=== PATIENT | female | born 1985 | race African-American/Black ===

== ENCOUNTER 2020-09-21 16:58 | Outpatient (RCR) | payer OTHER, SELFPAY | END 2020-12-20 23:59 | disposition home or self-care (01) | LOC: ANHLAB 16:58 | PROVIDERS: PCP Family Medicine; Visit Provider Obstetrics & Gynecology | DX: O20.0 Threatened abortion (principal); Z3A.00 Weeks of gestation of pregnancy not specified | CPT/HCPCS: 36415; 84702 ==

== ENCOUNTER 2020-09-22 16:37 | Outpatient (CLI) | payer OTHER, SELFPAY ==
--- NOTE | ~2020-09-22 | US_ITS ---
EXAMINATION: US OB <= 14 weeks fetus DATE: 09/22/2020 17:01 INDICATION: Amenorrhea. Vaginal spotting. TECHNIQUE: Real-time transabdominal and transvaginal obstetric ultrasound. FINDINGS: No prior studies for comparison. The uterus measures 9.2 x 5.8 x 6.5 cm.. There is an intrauterine gestational sac, with pole id entified. The crown rump length measures 0.29 cm, which correlates with a estimated gestational age of 5 weeks 6 days. heart tones are identified measuring 120 BPM. Ovaries are not visualized. No free fluid in the pelvis. IMPRESSION: 1. SL IUP with an EGA of 5 weeks, 6 days (EDC by current ultrasound of 05/19/2021). Reviewed, dictated and finalized at location A. SERVER IMPRESSION: 1. SL IUP with an EGA of 5 weeks, 6 days (EDC by current ultrasound of 05/19/20).
== END 2020-09-22 16:38 | disposition home or self-care (01) ==
PROVIDERS: PCP Family Medicine; Visit Provider Obstetrics & Gynecology
DX: N91.2 Amenorrhea, unspecified (principal); Z3A.01 Less than 8 weeks gestation of pregnancy
CPT/HCPCS: 76801

== ENCOUNTER 2020-09-23 11:15 | Outpatient (CLI) | payer OTHER, SELFPAY ==
[2020-09-26 08:21] LABS: Progesterone 12.8 ng/mL (***)
== END 2020-09-23 11:16 | disposition home or self-care (01) ==
LOC: ANHLAB 11:17
PROVIDERS: PCP Family Medicine; Visit Provider Obstetrics & Gynecology
DX: O20.9 Hemorrhage in early pregnancy, unspecified (principal); Z3A.00 Weeks of gestation of pregnancy not specified
CPT/HCPCS: 36415; 84144; 84702

== ENCOUNTER 2020-10-09 14:55 | Emergency (ER) | payer OTHER, SELFPAY ==
[2020-10-09 15:04] VITALS: BP 120/70; PULSE 88; RESP 18; TEMP 36.6; O2SAT 99
[2020-10-09 15:29] LABS: Basophils Percent Auto 0.5 % (0.2-1.2); Eosinophils Absolute Auto 0.1 K/mm3 (0-0.3); Eosinophils Percent Auto 0.9 % (0-4.4); Hematocrit 34.9 % (37.0-47.0); Immature Granulocyte Absolute 0.04 K/mm3 (0.00-0.031); Immature Granulocyte Percent A 0.7 % (0-0.5); Lymphocytes Absolute Auto 1.14 K/mm3 (0.9-3.2); Lymphocytes Percent Auto 20.2 % (18.3-44.2); Mean Corpuscular HGB Conc 34.4 g/dl (32-36); Mean Corpuscular Hemoglobin 30.6 pg (26-34); Mean Platelet Volume 9.8 fl (7.4-10.4); Monocytes Absolute Auto 0.6 K/mm3 (0.1-0.6); Monocytes Percent Auto 11.2 % (2.6-8.5); Neutrophils Absolute Auto 3.8 K/mm3 (1.3-6.7); Neutrophils Percent Auto 66.5 % (45.5-73.1); Platelet Count Result 232 k/mm3 (150-375); Red Blood Count 3.92 M/mm3 (4.2-5.4); Red Cell Distribution Width 12.6 % (11.5-14.5); White Blood Count 5.7 K/mm3 (4.5-10.0)
[2020-10-09 15:48] VITALS: BP 123/71; PULSE 80
[2020-10-09 15:52] VITALS: BP 124/70; PULSE 91
[2020-10-09 15:55] VITALS: BP 137/89; PULSE 86
--- NOTE | 2020-10-09 16:10 | ED.GENADULT ---
HPI - General Adult General Chief complaint: Vaginal Bleeding Stated complaint: MISCARRIAGE? Time Seen by Provider: 10/09/20 15:14 Source: patient Mode of arrival: ambulatory Limitations: no limitations History of Present Illness HPI narrative: Patient presents for evaluation after passing a clot vaginally while urinating earlier today. She states she is currently , approximately 8 weeks gestation. She has a history of irregular menstruation with LMP 08/15/2020. She has established care with [facility] and had an ultrasound during this on 09/22/2020 that showed intrauterine with gestational sac and pole identified. Gestation was estimated at 5 weeks 6 days and heart tones were 120 bpm. She states that this ultrasound was performed after she experienced some intermittent vaginal bleeding. States that yesterday and the day prior she had some blood on the tissue when wiping after urination. She reports some cramping last night, now improved. No fever, chills, vomiting. She has experienced some nausea. She is . Surgical hx positive for D+C. She is Rh positive. Related Data Allergies Allergy/AdvReac Type Severity Reaction Status Date / Time codeine Allergy Mild ITCHING Verified 10/09/20 17:05 aspirin Allergy Unknown Skin Verified 10/09/20 17:05 Reaction Review of Systems Review of Systems: Narrative: CONSTITUTIONAL: Denies fever, chills, or sweats. EYES: Denies visual changes, redness, or discharge. ENT: Denies rhinorrhea, congestion, sore throat, or otalgia. CARDIOVASCULAR: Denies chest pain, palpitations, or edema. RESPIRATORY: Denies cough or dyspnea. GASTROINTESTINAL: Reports nausea. Denies abdominal pain, vomiting, or diarrhea. GENITOURINARY: Reports passing a blood clot vaginally with episode of urination earlier today. Denies dysuria SKIN: Denies rash or itching. MUSCULOSKELETAL: Denies back pain, joint pain, or myalgia. NEUROLOGIC: Denies headache, numbness, dizziness, or weakness. PSYCHIATRIC: Denies anxiety or depression. [facility] Past Medical History Medical History (Updated 10/09/20 @ 17:44 by Norberto Renee, CARLOS, ) Anemia Anxiety Surgical History Surgical History (Updated 10/09/20 @ 16:14 by Norberto Renee, CARLOS, ) H/O dilation and curettage History of tonsillectomy Family History Family History Grandparent Hypertension Cerebrovascular accident Diabetes mellitus Father Cerebrovascular accident Social History Social History Smoking status: Never smoker Second hand tobacco smoke exposure: No Alcohol intake: current Substance use: never Living arrangements: with family Gender identity (if verbalized by the patient): Female Sexual Orientation (if Verbalized by the Patient): Straight or Heterosexual Spiritual care concerns: No Exam Narrative: Exam Narrative: GENERAL: Well-appearing, well-nourished, and in no acute distress. HEAD: Normocephalic, atraumatic. EYES: PERRLA and EOMI. ENT: Nares clear, no rhinorrhea or epistaxis. Mucous membranes moist. Oropharynx without tonsillar hypertrophy exudate or other lesions. Bilateral TMs pearly nolen nonbulging NECK: Supple. No adenopathy or masses. No carotid bruits or JVD CHEST: Clear to auscultation. No respiratory distress. No wheezes rales or rhonchi HEART: Regular rate and rhythm. No murmur heard. Normal peripheral pulses. ABDOMEN: Soft, nontender, nondistended, normal active bowel sounds. EXTREMITIES: Normal range of motion. No edema. : No external genital lesions. No adnexal tenderness. No cervical motion tenderness. Small amount of mucus consistent sanguinous drainage in vaginal vault. Cervical os appears closed. SKIN: Warm, dry, no rash. NEURO: No focal deficits. Alert and oriented x3. PSYCH: Normal mood and affect. Course Course Emergency Course:
[2020-10-09] MEDS: LACTATED RINGERS 1,000 ML 999 ML IV CONT (16:35)
[2020-10-09 16:39] LABS: Alanine Aminotransferase 14 U/L (4-35); Albumin Level 3.8 g/dL (3.5-5.1); Alkaline Phosphatase 37 U/L (38-126); Anion Gap 9 mmol/L (8-16); Aspartate Amino Transferase 21 U/L (14-36); Bilirubin,Total 0.4 mg/dL (0.2-1.3); Blood Urea Nitrogen 12 mg/dL (7-17); Calcium 9.1 mg/dL (8.4-10.2); Carbon Dioxide 22 mmol/L (22-30); Chloride 105 mmol/L (98-107); Estimated CRCL calculation 105 ml/min; Estimated Glomerular Filt Rate > 60; Glucose 87 mg/dL (65-105); Lipase 140 U/L (23-300); Potassium 3.6 mmol/L (3.4-5.0); Sodium 136 mmol/L (137-145)
[2020-10-09 16:54] VITALS: BP 114/78; PULSE 79; RESP 15; O2SAT 100
[2020-10-09 17:06] LABS: Add Urine Microscopic? YES; Appearance Urine Cloudy (Clear); Bacteria Urine Trace /hpf; Bilirubin Urine Negative (Negative); Blood Urine 2+ (Negative); Color Urine Yellow (Yellow); Glucose Urine UA Negative (Negative); Ketones Urine Negative (Negative); Leukocyte Esterase Ur Negative LEU/UL (Negative); Mucus Urine Rare /lpf; Nitrate Urine Negative (Negative); Protein Urine Negative (Negative); Specific Grav Ur 1.023 (1.001-1.035); Squamous Epithelial Cell Urine Few /hpf (Few); Urobilinogen Urine Negative mg/dL (<2.0); WBC Urine 0-3 /hpf
[2020-10-09 17:54] VITALS: BP 128/76; PULSE 79; RESP 15; O2SAT 100
== END 2020-10-09 17:55 | disposition home or self-care (01) ==
PROVIDERS: Emergency Provider Nurse Practitioner; PCP Family Medicine
DX: O20.0 Threatened abortion (principal); Z3A.01 Less than 8 weeks gestation of pregnancy
CPT/HCPCS: 36415; 80053; 81001; 83690; 84702; 85025; 87491; 87591; 87808; 96360; 99284; J7120

== ENCOUNTER 2020-10-12 10:23 | Outpatient (CLI) | payer OTHER, SELFPAY ==
--- NOTE | ~2020-10-12 | US_ITS ---
EXAMINATION: US OB <= 14 weeks fetus DATE: 10/12/2020 10:54 INDICATION: Vaginal spotting TECHNIQUE: Real-time transabdominal obstetric ultrasound. FINDINGS: Comparison to 09/22/2020 The uterus measures 9.2 x 9.9 x 9.9 cm. There is an intrauterine gestational sac, with pole cabrera ntified. The crown rump length measures 2.33 cm. heart tones are identified measuring 155 BPM. . Ovaries are not visualized. No evidence for subchorionic hemorrhage. IMPRESSION: 1. SL IUP with an EGA of 9 weeks, 0 days (EDC by current ultrasound of 05/17/2021). Reviewed, dictated and finalized at location B. IMPRESSION: 1. SL IUP with an EGA of 9 weeks, 0 days (EDC by current ultrasound of 05/17/20 21).
== END 2020-10-12 10:24 | disposition home or self-care (01) ==
PROVIDERS: PCP Family Medicine; Visit Provider Student in an Organized Health Care Education/Training Program
DX: O26.851 Spotting complicating pregnancy, first trimester (principal); Z3A.09 9 weeks gestation of pregnancy
CPT/HCPCS: 76801

== ENCOUNTER 2021-01-10 08:31 | Outpatient (CLI) | payer OTHER, SELFPAY ==
[2021-01-10 09:38] LABS: Glucose Fasting Gestational 100 mg/dL (>/=95)
[2021-01-10 09:42] LABS: Free T4 Free Thyroxine 0.71 ng/mL (0.78-2.19)
[2021-01-10 11:07] LABS: Glucose 1 Hour Gest 174 mg/dL (>/=180)
[2021-01-10 12:14] LABS: Glucose 2 Hour Gest 179 mg/dL (>/= 155)
[2021-01-10 13:14] LABS: Glucose 3 Hour Gest 123 mg/dL (>/=140)
== END 2021-01-10 08:32 | disposition home or self-care (01) ==
PROVIDERS: PCP Family Medicine; Visit Provider Obstetrics & Gynecology
DX: O99.810 Abnormal glucose complicating pregnancy (principal); Z3A.14 14 weeks gestation of pregnancy
CPT/HCPCS: 36415; 82951; 82952; 84439; 86850

== ENCOUNTER 2021-03-28 15:35 | Observation (INO) | payer OTHER, SELFPAY ==
[2021-03-28 16:00] VITALS: BMI 36.7
[2021-03-28 16:04] VITALS: TEMP 36.2
[2021-03-28 16:08] VITALS: BP 102/63; PULSE 98
[2021-03-28 16:15] VITALS: BP 107/69; PULSE 95
[2021-03-28 16:27] LABS: Add Urine Microscopic? NO; Appearance Urine Clear (Clear); Bilirubin Urine Negative (Negative); Blood Urine Negative (Negative); Color Urine Straw (Yellow); Glucose Urine UA Negative (Negative); Ketones Urine Negative (Negative); Leukocyte Esterase Ur Negative LEU/UL (NEGATIVE); Nitrate Urine Negative (Negative); Protein Urine Negative (Negative); Urobilinogen Urine Negative mg/dL (<2.0)
[2021-03-28 16:30] VITALS: BP 105/62; PULSE 102
[2021-03-28 16:45] VITALS: BP 92/60; PULSE 98
--- NOTE | 2021-04-14 08:20 | PM.OBTRLD ---
OB - Triage/Final Diagnosis Visit Information Comments/Additional reasons for admission: I have assessed the risk for this patient, Micki Knight, and determined that she would benefit from observation care. Evaluation Laboratory results: Laboratory Tests 03/28/21 16:06 Urine Color Straw Urine Appearance Clear Urine pH 6.0 Ur Specific [place] 1.010 Urine Protein Negative Urine Glucose (UA) Negative Urine Ketones Negative Ur Blood (Man) Negative Urine Nitrate Negative Urine Bilirubin Negative Urine Urobilinogen Negative Ur Leukocyte Esterase Negative Final Diagnosis (1) with abdominal cramping of lower quadrant, antepartum: Code(s): O26.899 - Other specified related conditions, unspecified trimester; R10.30 - Lower abdominal pain, unspecified Status: Acute
--- NOTE | 2021-04-25 11:14 | P.PNOB_ITS ---
OB - Triage/Final Diagnosis Visit Information Comments/Additional reasons for admission: I have assessed the risk for this patient, Micki Knight, and determined that she would benefit from observation care. Evaluation Laboratory results: Laboratory Tests 03/28/21 16:06 Urine Color Straw Urine Appearance Clear Urine pH 6.0 Ur Specific [place] 1.010 Urine Protein Negative Urine Glucose (UA) Negative Urine Ketones Negative Ur Blood (Man) Negative Urine Nitrate Negative Urine Bilirubin Negative Urine Urobilinogen Negative Ur Leukocyte Esterase Negative Final Diagnosis (1) Threatened labor, antepartum: Code(s): O47.00 - False labor before 37 completed weeks of gestation, unspecified trimester Status: Acute
== END 2021-03-28 17:15 | disposition home or self-care (01) ==
PROVIDERS: Admitting Provider Obstetrics & Gynecology; PCP Family Medicine; Visit Provider Obstetrics & Gynecology
DX: O26.899 Other specified pregnancy related conditions, unspecified trimester (principal); R10.30 Lower abdominal pain, unspecified; Z3A.00 Weeks of gestation of pregnancy not specified
CPT/HCPCS: 81003; 87077; 87086; 87088; G0378; G0379

== ENCOUNTER 2021-03-31 18:55 | Observation (INO) | payer OTHER, SELFPAY ==
--- NOTE | 2021-03-31 18:55 | OBADM ---
This patient, Micki Knight, admitted to the OB room [facility] for observation. Patient/family oriented to hospital policies and general routines including ID bracelet, bed and alarms, visiting hours, pain management, procedures, bathroom and other care routines, personal items, smoking policy, room service/diet, and visiting hours. Patient/Family are encouraged to report perceived risks to care and to ask questions if they do not understand what they are told or what they should do.
[2021-03-31 19:00] VITALS: RESP 16; TEMP 36.8
[2021-03-31 19:11] VITALS: BP 98/75; PULSE 111
[2021-03-31] MEDS: TERBUTALINE SULFATE 1 MG/ML VIAL 0.25 MG SUB-Q (20:31)
[2021-03-31 20:37] VITALS: BP 125/59; PULSE 114
[2021-03-31 21:00] VITALS: BMI 31.6
[2021-03-31 21:04] VITALS: RESP 18
[2021-03-31 21:30] VITALS: RESP 18; TEMP 36.9
[2021-03-31 21:52] LABS: Fetal Fibronectin Positive
[2021-03-31] MEDS: BETAMETHASONE SOD PHOS/ACETATE 30 MG/5 ML VIAL 12 MG IM (22:15)
--- NOTE | 2021-04-22 11:19 | PM.OBTRLD ---
OB - Triage/Final Diagnosis Visit Information Comments/Additional reasons for admission: I have assessed the risk for this patient, Micki Knight, and determined that she would benefit from observation care. Evaluation Laboratory results: Laboratory Tests 03/31/21 20:12 Fibronectin Positive Final Diagnosis (1) contractions: Code(s): O47.00 - False labor before 37 completed weeks of gestation, unspecified trimester Status: Acute
== END 2021-03-31 22:26 | disposition home or self-care (01) ==
PROVIDERS: Admitting Provider Student in an Organized Health Care Education/Training Program; PCP Family Medicine; Visit Provider Student in an Organized Health Care Education/Training Program
DX: O60.03 Preterm labor without delivery, third trimester (principal); Z3A.33 33 weeks gestation of pregnancy
CPT/HCPCS: 82731; 96372; G0378; G0379; J0702; J3105

== ENCOUNTER 2021-04-01 22:20 | Outpatient (CLI) | payer OTHER, SELFPAY ==
[2021-04-01] MEDS: BETAMETHASONE SOD PHOS/ACETATE 30 MG/5 ML VIAL 12 MG IM (22:53)
== END 2021-04-01 23:00 | disposition home or self-care (01) ==
LOC: ANHOBOP 22:25 → ANHLDR 22:29
PROVIDERS: PCP Family Medicine; Visit Provider Obstetrics & Gynecology
DX: Z34.90 Encounter for supervision of normal pregnancy, unspecified, unspecified trimester (principal)
CPT/HCPCS: 96372; 99199; J0702

== ENCOUNTER 2021-05-01 12:55 | Inpatient (IN) | payer OTHER, SELFPAY ==
[2021-05-01] VITALS (18 sets, daily range): BP systolic 103–131; BP diastolic 67–96; PULSE 85–106; TEMP 36.9–37; BMI 36.7
--- OUTSIDE RECORDS SUMMARY | 2021-05-01 13:40 | XMS_ITS ---
:1985 Author Care Team Providers Name Role Phone Carol Pathak Primary Care Provider Unavailable Allergies Code Code System Name Reaction Severity Status Onset 1191 RxNorm Aspirin ? ? Active ? Medications Name Status Start Date Stop Date ? ? Bactrim DS 800 mg-160 mg tablet Completed 11/08/2011 11/14/2011 take 1 tablet by oral route every 12 hours for 7 days [place] 8 % vaginal gel Active ? Not avai lable escitalopram 10 mg tablet Completed ? 2019 Feosol 325 mg (65 mg iron) tablet Active ? Not available Take 1 tablet every day by oral route. Feosol Bifera 28 mg tablet Completed 12/28/201610/12 1 po q day by mouth Flagyl 500 mg tablet Completed 09/16/2015 04/06/2016 take 1 tablet by oral route 2 times every day Macrobid 100 mg capsule Completed 04/06/2016 09/20/19 17 take 1 capsule by oral route every 12 hours with food, as dire cted Metrogel Vaginal 0.75 % Completed 09/25/2016 12/29/19 17 insert 1 applicatorful by vaginal route every day at bedtime f or 5 nights Minastrin 24 Fe 1 mg-20 mcg (24)/75 mg (4) chewable tablet Compl eted 06/29/2016 09/19/2016 chew 1 tablet by oral route every day Mirena 20 mcg/24 hours (7 yrs) 52 mg intrauterine device Complet ed ? 10/12/2020 Take by intrauterine route. Monistat 7 2 % vaginal cream Completed 05/23/2012 insert 1 applicatorful by vaginal route every day at bedtime nystatin 100,000 unit/gram topical cream Active ? Not available APPLY TOPICALLY TO THE AFFECTED AREA TW ICE DAILY NEEDED FOR YEAST RASH OR SYMPTOMS
[2021-05-01 14:08] LABS: Glucose Point of Care 83 mg/dl (65-105)
[2021-05-01 14:13] LABS: Basophils Percent Auto 0.3 % (0.2-1.2); Eosinophils Absolute Auto 0.1 K/mm3 (0-0.3); Eosinophils Percent Auto 0.9 % (0-4.4); Hematocrit 33.9 % (37.0-47.0); Hemoglobin 11.5 g/dL (12.0-15.0); Immature Granulocyte Absolute 0.29 K/mm3 (0.00-0.031); Immature Granulocyte Percent A 4.4 % (0-0.5); Lymphocytes Absolute Auto 1.15 K/mm3 (0.9-3.2); Lymphocytes Percent Auto 17.3 % (18.3-44.2); Mean Corpuscular HGB Conc 33.9 g/dl (32-36); Mean Corpuscular Hemoglobin 31.1 pg (26-34); Mean Corpuscular Volume 91.6 fl (80-100); Mean Platelet Volume 10.4 fl (7.4-10.4); Monocytes Absolute Auto 0.8 K/mm3 (0.1-0.6); Monocytes Percent Auto 12.5 % (2.6-8.5); Neutrophils Absolute Auto 4.3 K/mm3 (1.3-6.7); Neutrophils Percent Auto 64.6 % (45.5-73.1); Nucleated Red Blood Cells Perc 0.3 % (0.0-0.2); Platelet Count Result 165 k/mm3 (150-375); Red Cell Distribution Width 14.3 % (11.5-14.5); White Blood Count 6.6 K/mm3 (4.5-10.0)
[2021-05-01] MEDS: AMPICILLIN 2 GM/NS 100 ML 2 GM/100 ML BAG IVPB (14:13)
[2021-05-01] MEDS: LACTATED RINGERS 1,000 ML 125 ML IV CONT (14:13)
--- NOTE | 2021-05-01 14:30 | LDADM ---
This patient, Micki Knight, was admitted to Labor/Delivery/Recovery 106 on 05/01/21 at 12:55. Plans for labor, pain management and were discussed with patient. Patient/family oriented to hospital policies and general routines including ID bracelet, bed and alarms, visiting hours, pain management, procedures, bathroom and other care routines, personal items, smoking policy, room service/diet and guest tray routines, infant security routines, and visiting hours. Patient/Family are encouraged to report perceived risks to care and to ask questions if they do not understand what they are told or what they should do. See OBIX for further documentation.
[2021-05-01 15:03] LABS: HIV 1/2 Ab P24 Ag Result Negative (Negative)
[2021-05-01] MEDS: OXYTOCIN 30 UNITS/NS 500 ML 30 UNITS/500 ML BAG IV CONT (16:41)
--- NOTE | 2021-05-01 17:03 | WPDANESEPP ---
Anes - Eval Pre Procedure Procedure: labor epidural Date/Time: 05/01/21 17:03 Surgeon: uma Pre Op Diagnosis: Leaking Patient Data Age: 35 Gender: F Height: 1.63 m Weight: 97 kg Last Vital Signs Temp 37.0 C 05/01/21 13:30 Pulse 93 05/01/21 17:00 BP 110/69 05/01/21 17:00 Allergies Allergy/AdvReac Type Severity Reaction Status Date / Time codeine Allergy Mild ITCHING Verified 04/26/21 11:04 aspirin Allergy Unknown Skin Verified 04/26/21 11:04 Reaction Home Medications Medication Instructions Recorded Confirmed Type vitamins no.119-iron 1 tablet PO DAILY 10/12/20 05/01/21 History fumarate 29 mg-folic acid 1 mg tablet calcium carbonate 600 mg calcium 600 mg PO DAILY 10/20/20 05/01/21 History (1,500 mg) tablet omega-3 fatty acids 1,000 mg 1,000 mg PO DAILY 10/20/20 05/01/21 History capsule insulin NPH isoph U-100 human 100 10 unit SUBCUT QPM ml 04/26/21 05/01/21 History unit/mL (3 mL) subcutaneous pen Laboratory Tests 05/01/21 05/01/21 05/01/21 14:04 14:05 14:05 WBC 6.6 K/mm3 K/mm3 (4.5-10.0) RBC 3.70 M/mm3 L M/mm3 (4.2-5.4) Hgb 11.5 g/dL L g/dL (12.0-15.0) Hct 33.9 % L % (37.0-47.0) MCV 91.6 fl fl (80-100) MCH 31.1 pg pg (26-34) MCHC 33.9 g/dl g/dl (32-36) RDW 14.3 % % (11.5-14.5) Plt Count 165 k/mm3 k/mm3 (150-375) MPV 10.4 fl fl (7.4-10.4) Immature Gran % (Auto) 4.4 % H % (0-0.5) Neut % (Auto) 64.6 % % (45.5-73.1) Lymph % (Auto) 17.3 % L % (18.3-44.2) [place] % (Auto) 12.5 % H % (2.6-8.5) Eos % (Auto) 0.9 % % (0-4.4) Baso % (Auto) 0.3 % % (0.2-1.2) Lymph # (Auto) 1.15 K/mm3 K/mm3 (0.9-3.2) [place] # (Auto) 0.8 K/mm3 H K/mm3 (0.1-0.6) Eos # (Auto) 0.1 K/mm3 K/mm3 (0-0.3) Baso # (Auto) 0.0 K/mm3 K/mm3 (0.0-0.1) Abs Immat Gran (auto) 0.29 K/mm3 H K/mm3 (0.00-0.031) Absolute Neuts (auto) 4.3 K/mm3 K/mm3 (1.3-6.7) Absolute Nucleated RBC 0.0 K/mm3 K/mm3 (0.0-0.012) Nucleated RBC % 0.3 % H % (0.0-0.2) POC Capillary Glucose 83 mg/dl mg/dl (65-105) RPR Pending HIV 1&2 Ab/P24 Ag 4thGn Blood Type Antibody Screen 05/01/21 05/01/21 14:05 14:05 WBC RBC Hgb Hct MCV MCH MCHC RDW Plt Count MPV Immature Gran % (Auto) Neut % (Auto) Lymph % (Auto) [place] % (Auto) Eos % (Auto) Baso % (Auto) Lymph # (Auto) [place] # (Auto) Eos # (Auto) Baso # (Auto) Abs Immat Gran (auto) Absolute Neuts (auto) Absolute Nucleated RBC Nucleated RBC % POC Capillary Glucose RPR HIV 1&2 Ab/P24 Ag 4thGn Negative (Negative) Blood Type O Positive Antibody Screen Negative Patient hx anesthesia problems: none Family hx anesthesia problems: none Results Review: All pre-operative results and documents have been reviewed as part of the pre-operative evaluation. [facility] Past Medical History Medical History Anemia Anxiety History of vaginal delivery x 2 Missed x1 Surgical History Surgical History H/O dilation and curettage History of tonsillectomy Family History Family History Grandparent Hypertension Cerebrovascular accident Diabetes mellitus Father Cerebrovascular accident Social History Social History Smoking status: Never smoker Second hand t
[2021-05-01] MEDS: AMPICILLIN 1 GM/NS 50 ML 1 GM/50 ML BAG IVPB (18:14)
[2021-05-01 18:32] LABS: Glucose Point of Care 69 mg/dl (65-105)
--- NOTE | 2021-05-01 18:51 | PM.IMHP ---
H&P: HPI History of Present Illness Date/Time: 05/01/21 18:51 Patient is a 35 y/o at 37 2/7 by 5w 6d ultrasound on 09/22/20 which was discrepant from her LMP of 07/28/20. Patient presented today with leaking of fluid. She thought she had increase wetness on Fri and then on Sat at 1030pm she noticed more wetness, leaking. She presented today after having increase contractions. No fever. PNC significant for insulin requiring gestational diabetes, advance maternal age. She had an episode of contractions. She states that since her last visit on 04/26 her fingersticks have been normal. She has had reassuring testing. Last ultrasound was 72%. On L and D she had irregular contractions and confirmed ROM plus. Labs reviewed. GBS pos. Chief Complaint: Leaking of fluid Review of Systems Review of Systems: All systems reviewed & are unremarkable except as noted in HPI and below Constitutional: Constitutional: Reports no additional constitutional complaints and Denies headache(s) Eyes: Eyes: Denies spots in vision ENT: Reports system reviewed and no additional complaints, except as documented and Denies headache(s) Cardiovascular: Cardiovascular: Denies chest pain and Denies dyspnea Respiratory: Respiratory: Denies dyspnea Gastrointestinal: Gastrointestinal: Reports no additional gastrointestinal complaints Genitourinary: Genitourinary: Reports amenorrhea Musculoskeletal: Musculoskeletal: Reports no additional musculoskeletal complaints Integumentary/Breasts: Skin/Breast: Denies breast mass and Denies rash Neurologic: Denies headache(s) Psychiatric: Psychiatric: Reports no additional psychiatric complaints PMFSH Past Medical History Medical History Anemia Anxiety History of vaginal delivery x 2 Missed x1 Surgical History Surgical History H/O dilation and curettage History of tonsillectomy Family History Family History Grandparent Hypertension Cerebrovascular accident Diabetes mellitus Father Cerebrovascular accident Social History Social History Smoking status: Never smoker Second hand tobacco smoke exposure: No Alcohol intake: current Substance use: never Gender identity (if verbalized by the patient): Female Sexual Orientation (if Verbalized by the Patient): Straight or Heterosexual Spiritual care concerns: No Meds Home Medications and Allergies Home Medications Medication Instructions Recorded Confirmed Type vitamins no.119-iron 1 tablet PO DAILY 10/12/20 05/01/21 History fumarate 29 mg-folic acid 1 mg tablet calcium carbonate 600 mg calcium 600 mg PO DAILY 10/20/20 05/01/21 History (1,500 mg) tablet omega-3 fatty acids 1,000 mg 1,000 mg PO DAILY 10/20/20 05/01/21 History capsule insulin NPH isoph U-100 human 100 10 unit SUBCUT QPM ml 04/26/21 05/01/21 History unit/mL (3 mL) subcutaneous pen Allergies Allergy/AdvReac Type Severity Reaction Status Date / Time codeine Allergy Mild ITCHING Verified 04/26/21 11:04 aspirin Allergy Unknown Skin Verified 04/26/21 11:04 Reaction Vital Signs Vital Signs - 24 hr 05/01/21 13:14 05/01/21 13:30 05/01/21 15:30 Temperature 98.6 F 98.5 F Pulse Rate 106 H Blood Pressure 113/73 05/01/21 16:42 05/01/21 17:00 05/01/21 17:30 Temperature 98.6 F Pulse Rate 100 93 95 Blood Pressure 120/73 110/69 114/75 05/01/21 18:00 05/01/21 18:30 Temperature Pulse Rate 96 96 Blood Pressure 115/73 112/67 Exam Const: General: no acute distress Eyes: General: appearance normal, both eyes and all related structures Resp: Effort & Inspection: normal respiratory effort Cardio: Rate: regular rate GI: Other: Gravid no fundal tend
--- NOTE | 2021-05-01 19:03 | PM.OBPNLAB ---
Pain Control Date/time seen: 05/01/21 19:03 FHT 150 Cat 1, Ctx q 3-4 Large Forebag AROM clear at approximately 1835. Cervix /-2. Continue Pitocin augmentation and antibiotics.
[2021-05-01] MEDS: DEXTROSE 5%/LACTATED RINGERS 1,000 ML 100 ML IV CONT (19:25)
--- NOTE | 2021-05-01 22:16 | PM.OBPRVD ---
OB - Delivery Note Procedure Delivery date: 05/01/21 Procedure: Spontaneous vaginal delivery events: Gestational Diabetes, Premature Rupture of Membrane and Prolonged Rupture of Membrane Delivery augmentation: rupture of membranes and pitocin Delivery monitor: external FHT Route of delivery: Episiotomy description: None Laceration Description: None Specimen: Yes (Placenta and cord) Quantitative Blood Loss (ml): 300 Anesthesia type: None Disposition: floor Complications: None Baby Date of : 05/01/21 Time of : 21:54 Weeks of gestation at delivery: 37 gender: Male Weight (pounds): 7 Weight (ounces): 11 presentation: vertex position: Left Occiput Anterior Placenta delivery description: Expressed cord vessel description: 3 Vessels and Delayed Cord Clamping score one minute: 9 score five minutes: 9 Narrative: Patient admitted, labor augented with pitocin, forebag was assisted ruptured. She progressed to complete. Nose and mouth suctioned with bulb at perineum. Infant vigorously crying and placed on maternal abdomen. Patient tolerated procedure well.
[2021-05-01] MEDS: ACETAMINOPHEN 325 MG TABLET 650 MG (22:43)
[2021-05-01] MEDS: WITCH HAZEL 40 PADS 1 PAD (22:44)
[2021-05-01] MEDS: BENZOCAINE 20% AER SPR (*SP) 56 GM CAN 1 SPRAY (22:44)
[2021-05-01] MEDS: IBUPROFEN 600 MG TABLET (22:44)
[2021-05-02] VITALS (7 sets, daily range): BP systolic 103–116; BP diastolic 64–72; PULSE 80–99; RESP 16–18; TEMP 36.3–36.7; O2SAT 94–100
[2021-05-02] MEDS: IBUPROFEN 600 MG TABLET PO ×3 (04:15→19:23)
[2021-05-02] MEDS: ACETAMINOPHEN 325 MG TABLET 650 MG PO ×3 (04:16→19:22)
[2021-05-02 05:32] LABS: Glucose Point of Care 97 mg/dl (65-105)
[2021-05-02 05:40] LABS: Hematocrit 29.9 % (37.0-47.0)
[2021-05-02] MEDS: MULTIVIT/MIN/PREN/FOL AC/IRON TABLET 1 TAB PO (09:27)
[2021-05-02] MEDS: DOCUSATE SODIUM 100 MG CAPSULE PO (09:27)
[2021-05-02 10:27] LABS: Rapid Plasma Reagin Non-Reactive (NonReactive)
--- NOTE | 2021-05-02 11:00 | PC.NURSE ---
Mother called out for assist with feeding, reporting was circumcised this morning and is sleepy. is able to freely thrust tongue past gum ridge and flange both lips. Skin is intact on both nipples, no redness and bruising noted. Discussed establishing in the late infant may be more difficult due to their immaturity, infant may be less alert, have less stamina, and have greater difficulty with latch, suck, and swallow. ?s feeding may impact mother?s milk supply, pumping may need to be initiated /continued until milk supply is well established and is able to effective without supplementation. Mother states has not had any issued with feeding. Reviewed infant feeding cues, frequencies, duration of feedings, feeding elimination flow sheet, and signs of adequate intake. Demonstrated stimulation techniques to wake for feeding. Infant easily awoken with feeding cues noted Assisted with to breast. Reviewed positioning/alignment in cross cradle, holding breast in ?U? hold and guided asymmetrical latch on. Reviewed rational for each. Infant able to latch correctly within a few attempts. Infant nursed eagerly with steady draws and occasional swallowing noted, some pausing noted. Reviewed signs of a correct latch, effective nursing and suck swallow ratio. Suggested mother stimulate while feeding to increase stimulate, increase intake and to assist with maintaining deep latch. would slip to shallow latch causing tenderness. Demonstrated how to adjust latch more deeply while feeding if needed. Mother reports she can feel the difference in latch with no/less tenderness. Nipple care reviewed of lanolin after feedings, warm compresses as needed. Instructed mother to call out for RN assistance if she is unable to latch for feeding or she has discomfort with nursing. Instructed feeding should be initiated three hours from start of last feeding or if feeding cues are noted before. Mother voiced understanding of information shared.
[2021-05-02] MEDS: TETANUS,DIPHTHERIA,AC PERTUSSIS ADULT (0.5 ML) BOOSTRIX IM (19:09)
[2021-05-03] MEDS: IBUPROFEN 600 MG TABLET PO (04:47)
[2021-05-03] MEDS: ACETAMINOPHEN 325 MG TABLET 650 MG PO (04:48)
--- NOTE | 2021-05-03 05:45 | PM.OBPNVD ---
OB - PN: Subj Subjective Date/time seen: 05/02/21 0800 Patient comments: pain well controlled, tolerating diet and other (Decreasing lochia.) baby status: doing well and nursing well [place] feeding status: exclusively breast feeding OB - PN: Obj Data Labs CBC & Chem 7: 05/02/21 05:27 Labs: Laboratory Results - last 24 hr 05/01/21 14:05 RPR Non-reactive OB - PN A/P Plan day: 1 Plan: routine care Comments: Patient doing well. Continue routine care. Time Spent With Patient Time: Total time spent is greater than 50% in coordination of care (as documented) at patient's floor/unit and/or counseling patient: Review of Systems Review of Systems: All systems reviewed & are unremarkable except as noted in HPI and below Constitutional: Constitutional: Reports no additional constitutional complaints Cardiovascular: Cardiovascular: Denies dyspnea Respiratory: Respiratory: Denies dyspnea Gastrointestinal: Gastrointestinal: Reports no additional gastrointestinal complaints and Denies abdominal pain Genitourinary: Genitourinary: Reports no additional female genitourinary complaints Exam Const: General: no acute distress, alert and awake Resp: Effort & Inspection: normal respiratory effort GI: GI Palp: No Tenderness to palpation present (GI) Other: Fundus nontender, below umbilicus Psych: Appearance: grossly normal Affect: normal affect Other: Ext: nontender
--- NOTE | 2021-05-03 05:48 | PM.OBDSVD ---
DS: Admitting Diagnosis Discharge Date 05/03/21 Admitting Diagnosis Premature rupture of membranes. 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 She was started on IV antibiotics for GBS prophylaxis. She had pitocin augmentation. She had assisted rupture of membranes of forebag. She progressed to complete and had an uncomplicated vaginal delivery. Her blood sugars during labor were normal. she did well. Blood sugar fasting on day 1 was 97. She was ambulating well and tolerating regular diet and had light lochia on day 1. day 2 she was doing well. OB Procedures : NST and Ultrasound OB Procedures Intrapartum: Spontaneous Vag Delivery OB Procedures: : None Peripartum Data Infant Delivery Method: Natural Vaginal Laceration Description: None Episiotomy description: None complications: none Status at Discharge Functional status at discharge: independent ambulation Time Spent with Patient Time attestation: Total time spent providing and/or coordinating discharge services: Exam Const: General: cooperative Orientation/consciousness: oriented to person, oriented to place and oriented to time HENMT: General nose exam: Normal external nose present Eyes: General: appearance normal, both eyes and all related structures Resp: Effort & Inspection: normal respiratory effort GI: Inspection: normal to inspection Other: fundus firm nontender Skin: General skin exam: normal color Neuro: General: oriented to person, oriented to place and oriented to time Extrem: General: normal to inspection and no calf tenderness Psych: Appearance: grossly normal Mental Status: mental status grossly normal DS: Data Data Completed and Pending Pending studies at discharge: Pending at discharge 05/02/21 01:56 Surgical [PTH] Routine Labs on day of discharge: Labs from last 24 hours 05/01/21 14:05 RPR Non-reactive Discharge Plan Discharge Attending physician on discharge: Messi Anand Discharging Clinician: Messi Anand Anticipated Discharge Date/Time: 05/03/21 05:57 Patient Disposition: Home, Self-Care Activity: may shower and pelvic rest Diet: regular Discharge Instructions: Pelvic rest for 4-6 weeks. May take over the counter Ibuprofen or Tylenol for pain. Call if saturating more than a pad an hour, leg redness, pain and swelling, temperature>100.4. No strenuous activity. Take daily vitamin once a day. Education: Mom and Baby Guide and Preeclampsia Handout Given to: Mother Follow-Up: Call your delivering provider's office for an appointment to be seen in: 4 Weeks Mom and baby should come to the [facility] for the follow-up appointment. Appointment Date/Time: May 04, 2021 at 9:00 am What to expect at your follow-up visit: Physical Assessment Call [phone] if you are unable to keep your appointment time. BREAST CARE: * Wear a snug supportive bra. * For engorgement discomfort: Breast Feeding: * Apply warm moist washcloths * Express milk as needed to relieve engorgement * Wear loose clothing * For sore nipples: * Identify correct latch-on * Apply warm moist washcloths
--- NOTE | 2021-05-03 06:00 | PM.GYNPNOP ---
PARTS REPRESENTATIVE - A/P Assessment and plan (1) Delivery normal: Code(s): O80 - Encounter for full-term uncomplicated delivery Status: Acute Assessment and Plan: Day 2. S/p . She is doing well. Peds allowing baby to be discharged today. Patient desires discharge. Discharge instructions discussed. Time Spent With Patient Time: Total time spent is greater than 50% in coordination of care (as documented) at patient's floor/unit and/or counseling patient: Time with patient: less than 15 minutes PARTS REPRESENTATIVE- PN:Subj Post-Op Subjective Date/time seen: 05/03/21 08:30 She states she is doing well. Has adequate pain control. Ambulating without problems. Nursing well. Mild lochia. Review of Systems Review of Systems: All systems reviewed & are unremarkable except as noted in HPI and below Constitutional: Constitutional: Reports no additional constitutional complaints Cardiovascular: Cardiovascular: Denies dyspnea Respiratory: Respiratory: Denies dyspnea Gastrointestinal: Gastrointestinal: Reports no additional gastrointestinal complaints and Denies abdominal pain Genitourinary: Genitourinary: Reports no additional female genitourinary complaints Exam Const: General: comfortable and no acute distress Eyes: General: appearance normal, both eyes and all related structures Resp: Effort & Inspection: normal respiratory effort Psych: Affect: normal affect Other: Abd: fundus firm below umbilicus, nontender Ext: nontender PARTS REPRESENTATIVE - PN: Obj Data Vital Signs Vital Signs: Vital Signs - 24 hr 05/02/21 08:15 05/02/21 12:14 05/02/21 16:40 Temperature 97.6 F 97.7 F 98.1 F Pulse Rate 80 92 91 Respiratory Rate 16 16 18 Blood Pressure 104/66 113/72 103/64 Pulse Oximetry 100 100 05/02/21 19:10 Temperature 97.5 F L Pulse Rate 97 Respiratory Rate 18 Blood Pressure 113/65 Pulse Oximetry Intake/Output Intake/Output: Intake & Output 04/30/21 05/01/21 05/02/21 05/03/21 23:59 23:59 23:59 23:59 Output Total 25 Balance -25 Meds/Results Medications: Active Medications Generic Name Dose Route Start Last Admin Trade Name Freq PRN Reason Stop Dose Admin Acetaminophen 650 mg 05/02/21 03:47 05/03/21 04:48 Acetaminophen 325 Mg Tablet PO 650 mg Q6H PRN Administration Mild Pain (1-3) or Headache Benzocaine 1 spray 05/02/21 03:47 Benzocaine 20% Aer Spr (*Sp) 56 Gm Can TOPICAL PRN PRN Perineal Discomfort Dibucaine 1 applic 05/02/21 03:47 Dibucaine 1% Ointment 30 Gm Tube TOPICAL PRN PRN Hemorrhoids Docusate Sodium 100 mg 05/02/21 03:47 05/02/21 09:27 Docusate Sodium 100 Mg Capsule PO 100 mg BID PRN Administration Constipation Emollient Ointment 1 applic 05/02/21 03:47 Lanolin (Lansinoh) 7.5 Gm Cream TOPICAL PRN PRN Sore Nipples Ibuprofen 600 mg 05/02/21 03:47 05/03/21 04:47 Ibuprofen 600 Mg Tablet PO 600 mg Q6H PRN Administration Cramping Vit/Calcium/Iron/Folic Ac 1 tab 05/02/21 09:00 05/02/21 09:27 Multivit/Min/Pren/Fol Ac/Iron Tablet PO 1 tab DAILY MAXWELL Administration Simethicone 80 mg 05/02/21 03:47 Simethicone 80 Mg Tab.Chew PO Q2H PRN Gas Witch Kathie 1 pad 05/02/21 03:47 Witch Kathie 40 Pads TOPICAL PRN PRN Perineal Discomfort Zolpidem Tartrate 5 mg 05/02/21 03:47 Zolpidem Tartrate (*Crx) 5 Mg Tablet PO HS PRN Insomnia Labs CBC & Chem 7: 05/02/21 05:27 Labs: Laboratory Results - last 24 hr 05/01/21 14:05 RPR Non-reactive
[2021-05-03 08:45] VITALS: BP 106/69; PULSE 90; RESP 16; TEMP 36.6; O2SAT 100
[2021-05-03] MEDS: DOCUSATE SODIUM 100 MG CAPSULE PO (09:22)
[2021-05-03] MEDS: MULTIVIT/MIN/PREN/FOL AC/IRON TABLET 1 TAB PO (09:22)
--- NOTE | 2021-05-03 09:25 | PC.NURSE ---
Patient received instruction on viewing the discharge video Mother & Baby Care, The First Two Weeks online. Patient was given the opportunity and encouraged to ask questions. Patient verbalized understanding of information shared and has been given the mother/baby guide for home reference.
--- NOTE | 2021-05-03 09:45 | PC.NURSE ---
Consult with pt., observed mother is able to independently latch with appropriate positioning/alignment. Infant eagerly latches on first attempt with long rhythmical draws and frequent swallowing noted. She denies any nipple discomfort, is feeding as required and waking infant to feed if needed. Infant has had at least 8 effective feedings in the past 24 hours, and is currently meeting outcomes for weight, output, jaundice and feeding frequencies. Mother states she feels confident to continue effective at home. Reviewed transition to breast milk, signs of adequate intake, and engorgement/relief. Instructed to call ICP if intake/output less than required. Reviewed regular medications mother is taking. Information provided per [place]. Reviewed community resources on the [facility] website and in the Mom/Baby guide. Information on outpatient services provided. Mother has no further questions at this time. Instructed feeding should be initiated three hours from start of last feeding or if feeding cues are noted before until seen by ICP. Mother voiced understanding of information shared.
[2021-05-04 08:45] VITALS: BP 119/66; PULSE 88; RESP 20; TEMP 37.2; O2SAT 100
== END 2021-05-03 12:25 | disposition home or self-care (01) | DRG 807 ==
LOC: ANHLDR 13:38 → ANHOB2 05-02 02:39
PROVIDERS: Admitting Provider Obstetrics & Gynecology; PCP Family Medicine; Visit Provider Obstetrics & Gynecology
DX: O42.113 Preterm premature rupture of membranes, onset of labor more than 24 hours following rupture, third trimester (principal); Z37.0 Single live birth; Z3A.37 37 weeks gestation of pregnancy; O99.824 Streptococcus B carrier state complicating childbirth; O99.02 Anemia complicating childbirth; D64.9 Anemia, unspecified; O24.424 Gestational diabetes mellitus in childbirth, insulin controlled; O99.344 Other mental disorders complicating childbirth; F41.9 Anxiety disorder, unspecified
CPT/HCPCS: 36415; 82948; 85014; 85018; 85025; 86592; 86703; 86850; 86900; 86901; 88307; 90715; A9270; G0432; J0290; J2590; J7120; J7121

== ENCOUNTER 2021-05-08 20:16 | Inpatient (IN) | payer OTHER, SELFPAY ==
--- NOTE | ~2021-05-08 | CT_ITS ---
EXAMINATION: CTA chest PE protocol DATE: 05/08/2021 23:29 INDICATION: Shortness of breath. TECHNIQUE: Computed tomography angiography (CTA) of the chest was performed with 100 mL Omnipaque-350 intravenous contrast timed to evaluate the pulmonary arteries. Coronal maximum intensity projection 3D-reconstructions were created by the technologist. Automated exposure control and iterative reconst ruction technique were employed. The dose-length product was 648.60 mGy-cm. COMPARISON: CT abdomen and pelvis 02/05/2016 FINDINGS: There are small pleural effusions. There is mild dependent atelectasis bilaterally. A calci fied right lung nodule and calcified right hilar lymph nodes are consistent with old granulomatous di sease. The heart size is normal. No pericardial effusion. There is no pulmonary embolus. There is pro minent thymus in the anterior mediastinum. The bones are unremarkable. IMPRESSION: 1. No pulmonary embolus. 2. Small pleural effusions. Reviewed, dictated and finalized at location A.
--- NOTE | ~2021-05-08 | XR_ITS ---
EXAMINATION: XR chest 1V portable INDICATION: Shortness of breath TECHNIQUE: Portable AP chest at 2148 hours COMPARISON: 11/24/2014 FINDINGS: The lungs are free of acute opacities. There is no pneumothorax. Small pleural effusions ar e present. The cardiomediastinal silhouette is normal. IMPRESSION: 1. Small pleural effusions. Reviewed, dictated and finalized at location A. IMPRESSION: 1. Small pleural effusions.
[2021-05-08 20:22] VITALS: BP 145/95; PULSE 75; RESP 15; TEMP 37.1; O2SAT 100
[2021-05-08 20:40] VITALS: BP 138/91; PULSE 79; RESP 20; O2SAT 99
[2021-05-08 21:00] LABS: Basophils Percent Auto 0.4 % (0.2-1.2); Eosinophils Absolute Auto 0.1 K/mm3 (0-0.3); Eosinophils Percent Auto 1.8 % (0-4.4); Hematocrit 33.4 % (37.0-47.0); Hemoglobin 11.1 g/dL (12.0-15.0); Immature Granulocyte Absolute 0.08 K/mm3 (0.00-0.031); Immature Granulocyte Percent A 1.6 % (0-0.5); Lymphocytes Absolute Auto 1.56 K/mm3 (0.9-3.2); Lymphocytes Percent Auto 30.5 % (18.3-44.2); Mean Corpuscular HGB Conc 33.2 g/dl (32-36); Mean Corpuscular Hemoglobin 30.8 pg (26-34); Mean Corpuscular Volume 92.8 fl (80-100); Mean Platelet Volume 9.8 fl (7.4-10.4); Monocytes Absolute Auto 0.6 K/mm3 (0.1-0.6); Monocytes Percent Auto 11.3 % (2.6-8.5); Neutrophils Absolute Auto 2.8 K/mm3 (1.3-6.7); Neutrophils Percent Auto 54.4 % (45.5-73.1); Platelet Count Result 221 k/mm3 (150-375); Red Cell Distribution Width 14.3 % (11.5-14.5); White Blood Count 5.1 K/mm3 (4.5-10.0)
--- NOTE | 2021-05-08 21:38 | ED.GENADULT ---
HPI - General Adult General Chief complaint: Vaginal Bleeding Stated complaint: vaginal bleeding s/p delivery 1 week ago Time Seen by Provider: 05/08/21 20:44 Source: patient Mode of arrival: ambulatory Limitations: no limitations History of Present Illness HPI narrative: Patient G4,A1, P3 presents with chief complaint of passing 2 large blood clots and heavy vaginal bleeding over 10 to 15 minutes prior to arrival. Patient reports that she induced [address] Anand due to gestational diabetes. She reports that her placenta was difficult to deliver, but there was no hemorrhaging or other complications. She reports her lochia previous to this episode was light pink and not heavy. She reports she has also felt SOB with exertion since sunday and a pressure like sensation. Patient denies chest pain, cough, fever, chills. Related Data Allergies Allergy/AdvReac Type Severity Reaction Status Date / Time codeine Allergy Mild ITCHING Verified 04/26/21 11:04 aspirin Allergy Unknown Skin Verified 04/26/21 11:04 Reaction Review of Systems Review of Systems: CONSTITUTIONAL: Denies fever, chills, or sweats. EYES: Denies visual changes, redness, or discharge. ENT: Denies rhinorrhea, congestion, sore throat, or otalgia. CARDIOVASCULAR: Denies chest pain, palpitations, or edema. RESPIRATORY: Reports SOB Denies cough GASTROINTESTINAL: Denies abdominal pain, nausea, vomiting, or diarrhea. GENITOURINARY: Reports vaginal bleeding with clots Denies dysuria or hematuria. SKIN: Denies rash or itching. MUSCULOSKELETAL: Denies back pain, joint pain, or myalgia. NEUROLOGIC: Denies headache, numbness, dizziness, or weakness. PSYCHIATRIC: Denies anxiety or depression. [facility] Past Medical History Medical History Anemia Anxiety History of vaginal delivery x 2 Missed x1 Surgical History Surgical History H/O dilation and curettage History of tonsillectomy Family History Family History Grandparent Hypertension Cerebrovascular accident Diabetes mellitus Father Cerebrovascular accident Social History Social History Smoking status: Never smoker Second hand tobacco smoke exposure: No Alcohol intake: current Substance use: never Gender identity (if verbalized by the patient): Female Sexual Orientation (if Verbalized by the Patient): Straight or Heterosexual Spiritual care concerns: No Exam Narrative: GENERAL: Well-appearing, well-nourished, and in no acute distress. HEAD: Normocephalic, atraumatic. EYES: PERRLA and EOMI. CHEST: Clear to auscultation. No respiratory distress. No wheezes rales or rhonchi. Not tachypnic. Speech clear without difficulty. HEART: Regular rate and rhythm. No murmur heard. Normal peripheral pulses. ABDOMEN: Soft, still distended slightly from , nontender, normal active bowel sounds. PELVIC: Profuse bright red bleeding with many clots from quarter sized to 2 small fist sized clots. Suction used and vaginal vault still filling with blood and clots. Can not visualize the cervix. EXTREMITIES: Normal range of motion. No edema. SKIN: Warm, dry, no rash. NEURO: No focal deficits. Alert and oriented x3. PSYCH: Normal mood and affect. Course Vital Signs Vital signs: Vital Signs Temperature 98.7 F 05/08/21 20:22 Pulse Rate 75 05/08/21 20:22 Respiratory Rate 15 05/08/21 20:22 Blood Pressure 145/95 H 05/08/21 20:22 Pulse Oximetry 100 05/08/21 20:22 Temperature 97.9 F 05/09/21 07:00 Pulse Rate 70 05/09/21 07:00 Respiratory Rate 16 05/09/21 07:00 Blood Pressure 112/60 05/09/21 07:00 Pulse Oximetry 98 05/09/21 07:00 Medical Decision Making MDM Narrative Medical decision making narrative: Consult Dr Moreland regarding patient presentati
[2021-05-08 21:52] VITALS: BP 113/83; PULSE 69; RESP 18; O2SAT 99
[2021-05-08 22:20] LABS: D Dimer 3.83 ug/mL (<0.48)
--- NOTE | 2021-05-08 22:55 | PM.IMHP ---
H&P: HPI History of Present Illness Date/Time: 05/08/21 22:55 Patient s/p on 05/03/21. Patient was doing reasonably well until approx. 2 hrs prior to admission when she reports passing large blood clot. She watched bleeding at home for a little while afterwards, however, continued to pass several clots and a significant amount of blood, prompting visit to ED. Patient also reports feeling short of breath for past few days. Reports SOB with exertion only, not at rest. She did contact OB office on 05/06/21 and was advised to go to ED, however, she did not at that time. She reports persistent symptoms since then. Chief Complaint: Heavy vaginal bleeding Review of Systems Constitutional: Constitutional: Reports as per HPI Eyes: Eyes: Reports as per HPI and Reports no additional eye complaints ENT: Reports system reviewed and no additional complaints, except as documented and Reports as per HPI Cardiovascular: Cardiovascular: Reports as per HPI and Reports no additional cardiovascular complaints Respiratory: Respiratory: Reports as per HPI, Reports no additional respiratory complaints and Reports dyspnea on exertion Gastrointestinal: Gastrointestinal: Reports as per HPI, Reports no additional gastrointestinal complaints and Denies abdominal pain Genitourinary: Genitourinary: Reports no additional female genitourinary complaints, Reports as per HPI and Reports abnormal vaginal bleeding Musculoskeletal: Musculoskeletal: Reports no additional musculoskeletal complaints and Reports as per HPI Integumentary/Breasts: Skin/Breast: Reports system reviewed and no additional complaints, except as docu and Reports as per HPI Neurologic: Reports system reviewed and no additional complaints, except as documented and Reports as per HPI Psychiatric: Psychiatric: Reports no additional psychiatric complaints and Reports as per HPI Endocrine: Endocrine: Reports no additional endocrine complaints and Reports as per HPI Hematologic/Lymphatic: Hematologic/Lymphatic: Reports no additional hematologic/lymphatic complaints and Reports as per HPI Allergic/Immunologic: Allergic/Immunologic: Reports no additional allergic/immunologic complaints and Reports as per HPI PMFSH Past Medical History Medical History Anemia Anxiety History of vaginal delivery x 2 Missed x1 Surgical History Surgical History H/O dilation and curettage History of tonsillectomy Family History Family History Grandparent Hypertension Cerebrovascular accident Diabetes mellitus Father Cerebrovascular accident Social History Social History Smoking status: Never smoker Second hand tobacco smoke exposure: No Alcohol intake: current Substance use: never Gender identity (if verbalized by the patient): Female Sexual Orientation (if Verbalized by the Patient): Straight or Heterosexual Spiritual care concerns: No Meds Home Medications and Allergies Home Medications Medication Instructions Recorded Confirmed Type vitamin no.93-iron 31 1 tablet PO DAILY #60 cap 05/06/21 Rx mg-folate comb. 1 mg-dha-200 mg capsule Allergies Allergy/AdvReac Type Severity Reaction Status Date / Time codeine Allergy Mild ITCHING Verified 04/26/21 11:04 aspirin Allergy Unknown Skin Verified 04/26/21 11:04 Reaction Vital Signs Vital Signs - 24 hr 05/08/21 20:22 05/08/21 20:40 05/08/21 21:52 Temperature 37.1 C Pulse Rate 75 79 69 Respiratory Rate 15 20 18 Blood Pressure 145/95 H 138/91 H 113/83 Pulse Oximetry 100 99 99 Exam Const: General: cooperative, healthy appearing, no acute distress and anxious Nutritional Appearance: average body habitus Orientation/consciousness: patient oriented x3 HENMT: Head: no
[2021-05-08 23:09] VITALS: BP 130/96; PULSE 89; RESP 18; O2SAT 98
[2021-05-08 23:16] LABS: Alanine Aminotransferase 50 U/L (4-35); Albumin Level 3.5 g/dL (3.5-5.1); Alkaline Phosphatase 115 U/L (38-126); Anion Gap 9 mmol/L (8-16); Aspartate Amino Transferase 39 U/L (14-36); Bilirubin,Total 0.5 mg/dL (0.2-1.3); Blood Urea Nitrogen 14 mg/dL (7-17); Calcium 9.2 mg/dL (8.4-10.2); Carbon Dioxide 22 mmol/L (22-30); Chloride 107 mmol/L (98-107); Estimated CRCL calculation 123 ml/min; Estimated Glomerular Filt Rate > 60; Glucose 85 mg/dL (65-110); Potassium 3.6 mmol/L (3.4-5.0); Sodium 138 mmol/L (137-145)
--- NOTE | 2021-05-08 23:16 | PC.NURSE ---
report to or pt transported to [facility]
--- NOTE | 2021-05-08 23:20 | WPDHPUPDATE1 ---
History and Physical Update Update Date/Time: 05/08/21 23:20 History and Physical has been reviewed, including an updated exam of the patient. There are NO changes in the patient's condition. Risks, benefits, and alternatives have been discussed and questions answered. Patient agrees to proceed with procedure.
--- NOTE | 2021-05-08 23:21 | WPDANESEPP ---
Anes - Eval Pre Procedure Procedure: Operation Date: 05/08/21 23:00 Proposed Procedures p D&C Suction and Jesus Moreland MD Date/Time: 05/08/21 23:21 Pre Op Diagnosis: vaginal bleeding s/p delivery 1 week ago Patient Data Age: 35 Gender: F Height: 1.63 m Weight: 95.3 kg Last Vital Signs Temp 37.1 C 05/08/21 20:22 Pulse 89 05/08/21 23:09 Resp 18 05/08/21 23:09 BP 130/96 H 05/08/21 23:09 Pulse Ox 98 05/08/21 23:09 Allergies Allergy/AdvReac Type Severity Reaction Status Date / Time codeine Allergy Mild ITCHING Verified 04/26/21 11:04 aspirin Allergy Unknown Skin Verified 04/26/21 11:04 Reaction Home Medications Medication Instructions Recorded Confirmed Type vitamin no.93-iron 31 1 tablet PO DAILY #60 cap 05/06/21 Rx mg-folate comb. 1 mg-dha-200 mg capsule Laboratory Tests 05/08/21 05/08/21 05/08/21 20:54 20:54 20:55 WBC 5.1 K/mm3 K/mm3 (4.5-10.0) RBC 3.60 M/mm3 L M/mm3 (4.2-5.4) Hgb 11.1 g/dL L g/dL (12.0-15.0) Hct 33.4 % L % (37.0-47.0) MCV 92.8 fl fl (80-100) MCH 30.8 pg pg (26-34) MCHC 33.2 g/dl g/dl (32-36) RDW 14.3 % % (11.5-14.5) Plt Count 221 k/mm3 k/mm3 (150-375) MPV 9.8 fl fl (7.4-10.4) Immature Gran % (Auto) 1.6 % H % (0-0.5) Neut % (Auto) 54.4 % % (45.5-73.1) Lymph % (Auto) 30.5 % % (18.3-44.2) [place] % (Auto) 11.3 % H % (2.6-8.5) Eos % (Auto) 1.8 % % (0-4.4) Baso % (Auto) 0.4 % % (0.2-1.2) Lymph # (Auto) 1.56 K/mm3 K/mm3 (0.9-3.2) [place] # (Auto) 0.6 K/mm3 K/mm3 (0.1-0.6) Eos # (Auto) 0.1 K/mm3 K/mm3 (0-0.3) Baso # (Auto) 0.0 K/mm3 K/mm3 (0.0-0.1) Abs Immat Gran (auto) 0.08 K/mm3 H K/mm3 (0.00-0.031) Absolute Neuts (auto) 2.8 K/mm3 K/mm3 (1.3-6.7) Absolute Nucleated RBC 0.0 K/mm3 K/mm3 (0.0-0.012) Nucleated RBC % 0.0 % % (0.0-0.2) D-Dimer 3.83 ug/mL H ug/mL (<0.48) Sodium Potassium Chloride Carbon Dioxide Anion Gap BUN Creatinine Estim Creat Clear Calc Estimated GFR Glucose Calcium Total Bilirubin AST ALT Alkaline Phosphatase Total Protein Albumin Blood Type O Positive Antibody Screen Negative Screen Not Reportable Baby's Blood Type Not Reportable Baby's MARIELENA Not Reportable Doses of RhIg Required 0 05/08/21 20:55 WBC RBC Hgb Hct MCV MCH MCHC RDW Plt Count MPV Immature Gran % (Auto) Neut % (Auto) Lymph % (Auto) [place] % (Auto) Eos % (Auto) Baso % (Auto) Lymph # (Auto) [place] # (Auto) Eos # (Auto) Baso # (Auto) Abs Immat Gran (auto) Absolute Neuts (auto) Absolute Nucleated RBC Nucleated RBC % D-Dimer Sodium 138 mmol/L mmol/L (137-145) Potassium 3.6 mmol/L mmol/L (3.4-5.0) Chloride 107 mmol/L mmol/L (98-107) Carbon Dioxide 22 mmol/L mmol/L (22-30) Anion Gap 9 mmol/L mmol/L (8-16) BUN 14 mg/dL mg/dL (7-17) Creatinine 0.60 mg/dL L mg/dL (0.7-1.0) Estim Creat Clear Calc 123 ml/min ml/min Estimated GFR > 60 (59 - ) Glucose 85 mg/dL mg/dL (65-110) Calcium 9.2 mg/dL mg/dL (8.4-10.2) Total Bilirubin 0.5 mg/dL mg/dL (0.2-1.3) AST 39 U/L H U/L (14-36) ALT 50 U/L H U/L (4-35) Alkaline Phosphatase 115 U/L U/L (38-126) Total Protein 7.0 g/dL g/dL (6.3-8.2) Albumin 3.5 g/dL g/dL (3.5-5.1) Blood Type Antib
[2021-05-08] MEDS: LACTATED RINGERS 1,000 ML 30 ML IV CONT (23:30)
--- NOTE | 2021-05-08 23:36 | WPDANESEFPP ---
Anes - Eval Final PreProcedure Day of Procedure 05/08/21 23:36 Patient weight: obese Heart: regular rate and rhythm Lungs: clear to auscultation Airway: Mallampati scale class II Neurological: alert and oriented Last oral intake: >/= 8 hours ASA classification: II Emergent: yes Anesthetic plan: proceed Anesthesia type and monitoring: general GIVS and standard monitoring Results Review: All pre-operative results and documents have been reviewed as part of the pre-operative evaluation. Informed Consent: The patient's anesthetic plan and its attendant risks and benefits were discussed with the patient/family/POA. Questions were solicited and answers provided to the satisfaction of the patient/family/POA.
[2021-05-09] VITALS (13 sets, daily range): BP systolic 97–118; BP diastolic 53–83; PULSE 70–88; RESP 14–20; TEMP 36.5–37.3; O2SAT 96–100
[2021-05-09] MEDS: miSOPROStol 200 MCG TABLET 1000 MCG RECTAL (00:07)
[2021-05-09] MEDS: LACTATED RINGERS 1,000 ML 30 ML IV CONT ×2 (00:33→00:40)
[2021-05-09] MEDS: CLINDAMYCIN 900 MG/D5W 50 ML 900 MG/50 ML PIGGYBACK 50 MG IVPB ×3 (00:35→16:30)
[2021-05-09] MEDS: fentaNYL CITRATE INJ (*CRX) 100 MCG/2 ML VIAL 25 MCG IV PUSH ×3 (00:40→01:24)
--- NOTE | 2021-05-09 00:46 | W.PM.PROC2 ---
Procedure Note - Detailed Date of Procedure 05/08/21 Pre-op Diagnosis Secondary hemorrhage s/p on 05/01/21 Post-op Diagnosis same Procedure Performed Suction dilation and curettage Bakri balloon placement Surgeon Monse Moreland MD Anesthesia MAC Findings Large amount of blood and clots Description of Procedure Patient was taken to operating room where she self transferred operating room table. Patient was placed in dorsal supine position. Anesthesia was administered and found to be adequate. Patient was repositioned dorsal lithotomy position with use of John stirrups. A large amount of blood clot was noted on Chux and liz pad beneath the patient. She was prepped and draped usual sterile fashion. A large blood clot was visualized protruding through patient's vagina. Bimanual exam was performed with evacuation of a large amount of blood clots. Cervical os was approximately 3-4 cm dilated. A bivalve speculum was inserted into the vagina. The anterior lip of the cervix was grasped with a single-tooth tenaculum. A size 14 rigid curette was introduced into the endometrial cavity and connected to the suction tubing. The suction aspirator was then activated and the curette was gently rotated clearing the cavity of all contents. Several passes with the rigid curette were made and a large amount blood and contents were evacuated. The size 14 curette was then switched for a size 8 curette. Similarly, this curette was introduced into endometrial cavity and all quadrants were explored. Moderate to heavy bleeding persisted. A Gillespie curette was then introduced into the endometrial cavity and again, all quadrants of the cavity were explored. A gritty texture was noted and uterus appeared to involute some, however, moderate to heavy bleeding persisted. A red rubber catheter was used to drain the bladder of 300 cc of clear urine. Vigorous bimanual massage was performed and bleeding seemed to slow down. Patient was observed for a few minutes and again moderate bleeding ensued. Bimanual exam and massage was performed again with evacuation of a significantly smaller amount of clots and bleeding slowed down again to what would be considered minimal normal lochia level. Decision, however, was made to place Bakri balloon in lower uterine segment for additional tamponade. Bakri balloon was placed and inflated with 75 cc of saline. Approximately 20 cc of blood was returned immediately after Bakri balloon placement after which no further bleeding was noted. Uterine fundus was palpated at approximately 14 weeks gestation size and firm. Tenaculum was removed. The tenaculum puncture sites were noted to be slightly oozing. These sites were made hemostatic with silver nitrate. Excellent hemostasis was noted. The vagina was then cleansed and dried and the speculum was removed. The remainder the patient was cleansed and dried. A Butts catheter was inserted. She was taken out of the dorsal lithotomy position and awakened from anesthesia without difficulty. She was transferred to recovery room in stable condition. All sponge and instrument counts were correct at the end of the procedure. The evacuated uterine contents (a total of 600cc) were prepared to be sent to pathology. The patient tolerated the procedure well. Throughout the procedure, the patient received Methergine, Hemabate, tranexamic acid, and cytotec. Please refer to anesthesia record for administration of these medications. Estimated Blood Loss 1,200 (this amount does not account for uterine contents or blood loss prior to procedure and was solely during procedure) IV Fluids 2,000 Urine Output -300.0 Drains Yes (butts catheter and bakri balloon ) Packing No Pathology yes (endometrial contents) Complications No immediate complications Condition stable Disposition PACU
[2021-05-09] MEDS: DEXTROSE 5%/0.45% SOD CHL 1,000 ML 125 ML IV CONT (02:54)
--- NOTE | 2021-05-09 03:26 | PC.NURSE ---
05/09/2021 at 0220 Patient on stretcher brought from PACU. Patient transferred from stretcher to bed without difficulty. Patient oriented to room surroundings and plan of care. Patient states understanding. Assessment done and found WNL.
[2021-05-09 04:07] LABS: Basophils Percent Auto 0.1 % (0.2-1.2); Eosinophils Percent Auto 0.1 % (0-4.4); Hemoglobin 8.3 g/dL (12.0-15.0); Immature Granulocyte Absolute 0.12 K/mm3 (0.00-0.031); Immature Granulocyte Percent A 1.3 % (0-0.5); Lymphocytes Absolute Auto 0.77 K/mm3 (0.9-3.2); Lymphocytes Percent Auto 8.5 % (18.3-44.2); Mean Corpuscular HGB Conc 33.2 g/dl (32-36); Mean Corpuscular Hemoglobin 30.9 pg (26-34); Mean Corpuscular Volume 92.9 fl (80-100); Mean Platelet Volume 9.6 fl (7.4-10.4); Monocytes Absolute Auto 0.3 K/mm3 (0.1-0.6); Monocytes Percent Auto 3.1 % (2.6-8.5); Neutrophils Absolute Auto 7.9 K/mm3 (1.3-6.7); Neutrophils Percent Auto 86.9 % (45.5-73.1); Platelet Count Result 193 k/mm3 (150-375); Red Blood Count 2.69 M/mm3 (4.2-5.4); Red Cell Distribution Width 14.1 % (11.5-14.5); White Blood Count 9.1 K/mm3 (4.5-10.0)
[2021-05-09 04:20] LABS: Alanine Aminotransferase 37 U/L (4-35); Albumin Level 2.9 g/dL (3.5-5.1); Alkaline Phosphatase 89 U/L (38-126); Anion Gap 5 mmol/L (8-16); Aspartate Amino Transferase 34 U/L (14-36); Bilirubin,Total 0.2 mg/dL (0.2-1.3); Blood Urea Nitrogen 11 mg/dL (7-17); Calcium 8.4 mg/dL (8.4-10.2); Carbon Dioxide 24 mmol/L (22-30); Chloride 107 mmol/L (98-107); Estimated CRCL calculation 123 ml/min; Estimated Glomerular Filt Rate > 60; Glucose 145 mg/dL (65-110); INR 1.1; Potassium 4.1 mmol/L (3.4-5.0); Prothrombin Time 14.1 Seconds (11.1-14.7); Sodium 136 mmol/L (137-145)
[2021-05-09 04:21] LABS: Partial Thromboplastin Time 29.7 SECONDS (22.3-36.8)
[2021-05-09 04:22] LABS: Fibrinogen 149 mg/dl (215-510)
--- NOTE | 2021-05-09 08:08 | WPDANESPN ---
Anes - Prog Note Post-Op Date/Time: 05/09/21 08:08 Cardiovascular status: normal Respiratory status: normal Airway patency: baseline Mental status: baseline Post-Op hydration status: normal Vital Signs: Last Vital Signs Temp 36.6 C 05/09/21 07:00 Pulse 70 05/09/21 07:00 Resp 16 05/09/21 07:00 BP 112/60 05/09/21 07:00 Pulse Ox 98 05/09/21 07:00 Pain Score (VAS): 07/25 I/O: Intake & Output 05/08/21 05/09/21 05/09/21 23:59 07:59 15:59 Intake Total 5253.5 Output Total 981 Balance 4272.5 Laboratory Tests 05/09/21 04:01 05/09/21 04:01 05/08/21 05/08/21 05/08/21 20:54 20:54 20:55 WBC 5.1 RBC 3.60 L Hgb 11.1 L Hct 33.4 L MCV 92.8 MCH 30.8 MCHC 33.2 RDW 14.3 Plt Count 221 MPV 9.8 Immature Gran % (Auto) 1.6 H Neut % (Auto) 54.4 Lymph % (Auto) 30.5 Ward % (Auto) 11.3 H Eos % (Auto) 1.8 Baso % (Auto) 0.4 Lymph # (Auto) 1.56 Ward # (Auto) 0.6 Eos # (Auto) 0.1 Baso # (Auto) 0.0 Abs Immat Gran (auto) 0.08 H Absolute Neuts (auto) 2.8 Absolute Nucleated RBC 0.0 Nucleated RBC % 0.0 PT INR APTT Fibrinogen D-Dimer 3.83 H Sodium Potassium Chloride Carbon Dioxide Anion Gap BUN Creatinine Estim Creat Clear Calc Estimated GFR Glucose Calcium Total Bilirubin AST ALT Alkaline Phosphatase Total Protein Albumin Blood Type O Positive Antibody Screen Negative Screen Not Reportable Baby's Blood Type Not Reportable Baby's MARIELENA Not Reportable Doses of RhIg Required 0 05/08/21 05/09/21 05/09/21 20:55 04:01 04:01 WBC 9.1 RBC 2.69 L Hgb 8.3 L Hct 25.0 L MCV 92.9 MCH 30.9 MCHC 33.2 RDW 14.1 Plt Count 193 MPV 9.6 Immature Gran % (Auto) 1.3 H Neut % (Auto) 86.9 H Lymph % (Auto) 8.5 L Ward % (Auto) 3.1 Eos % (Auto) 0.1 Baso % (Auto) 0.1 L Lymph # (Auto) 0.77 L Ward # (Auto) 0.3 Eos # (Auto) 0.0 Baso # (Auto) 0.0 Abs Immat Gran (auto) 0.12 H Absolute Neuts (auto) 7.9 H Absolute Nucleated RBC 0.0 Nucleated RBC % 0.0 PT 14.1 INR 1.1 APTT 29.7 Fibrinogen 149 L D-Dimer Sodium 138 Potassium 3.6 Chloride 107 Carbon Dioxide 22 Anion Gap 9 BUN 14 Creatinine 0.60 L Estim Creat Clear Calc 123 Estimated GFR > 60 Glucose 85 Calcium 9.2 Total Bilirubin 0.5 AST 39 H ALT 50 H Alkaline Phosphatase 115 Total Protein 7.0 Albumin 3.5 Blood Type Antibody Screen Screen Baby's Blood Type Baby's MARIELENA Doses of RhIg Required 05/09/21 04:01 WBC RBC Hgb Hct MCV MCH MCHC RDW Plt Count MPV Immature Gran % (Auto) Neut % (Auto) Lymph % (Auto) Ward % (Auto) Eos % (Auto) Baso % (Auto) Lymph # (Auto) Ward # (Auto) Eos # (Auto) Baso # (Auto) Abs Immat Gran (auto) Absolute Neuts (auto) Absolute Nucleated RBC Nucleated RBC % PT INR APTT Fibrinogen D-Dimer Sodium 136 L Potassium 4.1 Chloride 107 Carbon Dioxide 24 Anion Gap 5 L BUN 11 Creatinine 0.60 L Estim Creat Clear Calc 123 Estimated GFR > 60 Glucose 145 H Calcium 8.4 Total Bilirubin 0.2 AST 34 ALT 37 H Alkaline Phosphatase 89 Total Protein 5.0 L Albumin 2.9 L Blood Type Antibody Screen Screen Baby's Blood Type Baby's MARIELENA Doses of RhIg Required Post-procedural complaints: none Patient Feedback: Patient satisfied with anesthetic care.
[2021-05-09] MEDS: METHYLERGONOVINE MALEATE 0.2 MG TABLET PO ×2 (09:30→17:10)
--- NOTE | 2021-05-09 10:07 | PM.OBPNVD ---
OB - PN: Subj Subjective Date/time seen: 05/09/21 0910 She states she feels ok. She is not SOB. Has been lying in bed. Has not sat up in chair. No nausea. No leg pain. Has adequate pain control. Lochia is light. Minimal blood in Bakri bag. OB - PN: Obj Data Labs CBC & Chem 7: 05/09/21 04:01 05/09/21 04:01 Labs: Laboratory Results - last 24 hr 05/08/21 05/08/21 05/08/21 20:54 20:54 20:55 WBC 5.1 RBC 3.60 L Hgb 11.1 L Hct 33.4 L MCV 92.8 MCH 30.8 MCHC 33.2 RDW 14.3 Plt Count 221 MPV 9.8 Immature Gran % (Auto) 1.6 H Neut % (Auto) 54.4 Lymph % (Auto) 30.5 [place] % (Auto) 11.3 H Eos % (Auto) 1.8 Baso % (Auto) 0.4 Lymph # (Auto) 1.56 [place] # (Auto) 0.6 Eos # (Auto) 0.1 Baso # (Auto) 0.0 Abs Immat Gran (auto) 0.08 H Absolute Neuts (auto) 2.8 Absolute Nucleated RBC 0.0 Nucleated RBC % 0.0 PT INR APTT Fibrinogen D-Dimer 3.83 H Sodium Potassium Chloride Carbon Dioxide Anion Gap BUN Creatinine Estim Creat Clear Calc Estimated GFR Glucose Calcium Total Bilirubin AST ALT Alkaline Phosphatase Total Protein Albumin Blood Type O Positive Antibody Screen Negative Screen Not Reportable Baby's Blood Type Not Reportable Baby's MARIELENA Not Reportable Doses of RhIg Required 0 05/08/21 05/09/21 05/09/21 20:55 04:01 04:01 WBC 9.1 RBC 2.69 L Hgb 8.3 L Hct 25.0 L MCV 92.9 MCH 30.9 MCHC 33.2 RDW 14.1 Plt Count 193 MPV 9.6 Immature Gran % (Auto) 1.3 H Neut % (Auto) 86.9 H Lymph % (Auto) 8.5 L [place] % (Auto) 3.1 Eos % (Auto) 0.1 Baso % (Auto) 0.1 L Lymph # (Auto) 0.77 L [place] # (Auto) 0.3 Eos # (Auto) 0.0 Baso # (Auto) 0.0 Abs Immat Gran (auto) 0.12 H Absolute Neuts (auto) 7.9 H Absolute Nucleated RBC 0.0 Nucleated RBC % 0.0 PT 14.1 INR 1.1 APTT 29.7 Fibrinogen 149 L D-Dimer Sodium 138 Potassium 3.6 Chloride 107 Carbon Dioxide 22 Anion Gap 9 BUN 14 Creatinine 0.60 L Estim Creat Clear Calc 123 Estimated GFR > 60 Glucose 85 Calcium 9.2 Total Bilirubin 0.5 AST 39 H ALT 50 H Alkaline Phosphatase 115 Total Protein 7.0 Albumin 3.5 Blood Type Antibody Screen Screen Baby's Blood Type Baby's MARIELENA Doses of RhIg Required 05/09/21 04:01 WBC RBC Hgb Hct MCV MCH MCHC RDW Plt Count MPV Immature Gran % (Auto) Neut % (Auto) Lymph % (Auto) [place] % (Auto) Eos % (Auto) Baso % (Auto) Lymph # (Auto) [place] # (Auto) Eos # (Auto) Baso # (Auto) Abs Immat Gran (auto) Absolute Neuts (auto) Absolute Nucleated RBC Nucleated RBC % PT INR APTT Fibrinogen D-Dimer Sodium 136 L Potassium 4.1 Chloride 107 Carbon Dioxide 24 Anion Gap 5 L BUN 11 Creatinine 0.60 L Estim Creat Clear Calc 123 Estimated GFR > 60 Glucose 145 H Calcium 8.4 Total Bilirubin 0.2 AST 34 ALT 37 H Alkaline Phosphatase 89 Total Protein 5.0 L Albumin 2.9 L Blood Type Antibody Screen Screen Baby's Blood Type Baby's MARIELENA Doses of RhIg Required Imaging Radiologist's impression: Impressions Chest CTA 05/09/21 08:48 IMPRESSION: 1. No pulmonary embolus. 2. Small pleural effusions. Chest X-Ray 05/09/21 08:48 IMPRESSION: 1. Small pleural effusions. OB - PN A/P Assessment and Plan (1) Secondary hemorrhage: Code(s): O72.2 - Delayed and secondary hemorrhage Status: Acute Assessment and Plan: Currently stable. No signs or symptoms of active bleeding. Will recheck h/h at noon. Continue antibiotics for 24 hours. Will discontinue Bakri this afternoon if continue minimal vaginal bleeding. Add PCD. Will advance diet. Will have her sit up. Currently
[2021-05-09 13:36] LABS: Hematocrit 23.7 % (37.0-47.0); Hemoglobin 7.8 g/dL (12.0-15.0); Mean Corpuscular HGB Conc 32.9 g/dl (32-36); Mean Platelet Volume 9.9 fl (7.4-10.4); Platelet Count Result 228 k/mm3 (150-375); Red Blood Count 2.52 M/mm3 (4.2-5.4); White Blood Count 8.8 K/mm3 (4.5-10.0)
--- NOTE | 2021-05-09 16:21 | PM.OBPNVD ---
OB - PN: Subj Subjective Date/time seen: 05/09/21 16:21 Bakri balloon removed. fundus palpated 14 week no blood at perineum with massage of fundus. She has sat up without hypovolemic symptoms. Will ambulate with assistance initially. Will saline lock IVF, D/C [place]. OB - PN: Obj Data Labs CBC & Chem 7: 05/09/21 13:27 05/09/21 04:01 Labs: Laboratory Results - last 24 hr 05/08/21 05/08/21 05/08/21 20:54 20:54 20:55 WBC 5.1 RBC 3.60 L Hgb 11.1 L Hct 33.4 L MCV 92.8 MCH 30.8 MCHC 33.2 RDW 14.3 Plt Count 221 MPV 9.8 Immature Gran % (Auto) 1.6 H Neut % (Auto) 54.4 Lymph % (Auto) 30.5 [place] % (Auto) 11.3 H Eos % (Auto) 1.8 Baso % (Auto) 0.4 Lymph # (Auto) 1.56 [place] # (Auto) 0.6 Eos # (Auto) 0.1 Baso # (Auto) 0.0 Abs Immat Gran (auto) 0.08 H Absolute Neuts (auto) 2.8 Absolute Nucleated RBC 0.0 Nucleated RBC % 0.0 PT INR APTT Fibrinogen D-Dimer 3.83 H Sodium Potassium Chloride Carbon Dioxide Anion Gap BUN Creatinine Estim Creat Clear Calc Estimated GFR Glucose Calcium Total Bilirubin AST ALT Alkaline Phosphatase Total Protein Albumin Blood Type O Positive Antibody Screen Negative Screen Not Reportable Baby's Blood Type Not Reportable Baby's MARIELENA Not Reportable Doses of RhIg Required 0 05/08/21 05/09/21 05/09/21 20:55 04:01 04:01 WBC 9.1 RBC 2.69 L Hgb 8.3 L Hct 25.0 L MCV 92.9 MCH 30.9 MCHC 33.2 RDW 14.1 Plt Count 193 MPV 9.6 Immature Gran % (Auto) 1.3 H Neut % (Auto) 86.9 H Lymph % (Auto) 8.5 L [place] % (Auto) 3.1 Eos % (Auto) 0.1 Baso % (Auto) 0.1 L Lymph # (Auto) 0.77 L [place] # (Auto) 0.3 Eos # (Auto) 0.0 Baso # (Auto) 0.0 Abs Immat Gran (auto) 0.12 H Absolute Neuts (auto) 7.9 H Absolute Nucleated RBC 0.0 Nucleated RBC % 0.0 PT 14.1 INR 1.1 APTT 29.7 Fibrinogen 149 L D-Dimer Sodium 138 Potassium 3.6 Chloride 107 Carbon Dioxide 22 Anion Gap 9 BUN 14 Creatinine 0.60 L Estim Creat Clear Calc 123 Estimated GFR > 60 Glucose 85 Calcium 9.2 Total Bilirubin 0.5 AST 39 H ALT 50 H Alkaline Phosphatase 115 Total Protein 7.0 Albumin 3.5 Blood Type Antibody Screen Screen Baby's Blood Type Baby's MARIELENA Doses of RhIg Required 05/09/21 05/09/21 04:01 13:27 WBC 8.8 RBC 2.52 L Hgb 7.8 L Hct 23.7 L MCV 94.0 MCH 31.0 MCHC 32.9 RDW 14.0 Plt Count 228 MPV 9.9 Immature Gran % (Auto) Neut % (Auto) Lymph % (Auto) [place] % (Auto) Eos % (Auto) Baso % (Auto) Lymph # (Auto) [place] # (Auto) Eos # (Auto) Baso # (Auto) Abs Immat Gran (auto) Absolute Neuts (auto) Absolute Nucleated RBC Nucleated RBC % PT INR APTT Fibrinogen D-Dimer Sodium 136 L Potassium 4.1 Chloride 107 Carbon Dioxide 24 Anion Gap 5 L BUN 11 Creatinine 0.60 L Estim Creat Clear Calc 123 Estimated GFR > 60 Glucose 145 H Calcium 8.4 Total Bilirubin 0.2 AST 34 ALT 37 H Alkaline Phosphatase 89 Total Protein 5.0 L Albumin 2.9 L Blood Type Antibody Screen Screen Baby's Blood Type Baby's MARIELENA Doses of RhIg Required Imaging Radiologist's impression: Impressions Chest CTA 05/09/21 08:48 IMPRESSION: 1. No pulmonary embolus. 2. Small pleural effusions. Chest X-Ray 05/09/21 08:48 IMPRESSION: 1. Small pleural effusions. OB - PN A/P Time Spent With Patient Time: Total time spent is greater than 50% in coordination of care (as documented) at patient's floor/unit and/or counseling patient:
[2021-05-09] MEDS: IBUPROFEN 600 MG TABLET PO (17:10)
[2021-05-10] MEDS: CLINDAMYCIN 900 MG/D5W 50 ML 900 MG/50 ML PIGGYBACK 50 MG IVPB (00:37)
[2021-05-10] MEDS: IBUPROFEN 600 MG TABLET PO (00:43)
[2021-05-10] MEDS: METHYLERGONOVINE MALEATE 0.2 MG TABLET PO ×2 (02:09→09:22)
--- NOTE | 2021-05-10 08:31 | PM.OBDSVD ---
DS: Admitting Diagnosis Discharge Date 05/10/21 Admitting Diagnosis hemorrhage DS: Discharge Diagnosis Discharge Diagnosis (1) Secondary hemorrhage: Code(s): O72.2 - Delayed and secondary hemorrhage Status: Acute (2) Anemia: Code(s): D64.9 - Anemia, unspecified Status: Acute OB - DS: Summary Hospital Course Hospital Course: patient admitted on 05/08 from the emergency department after presenting for heavy vaginal bleeding. She was assessed by Dr. Moreland and was taken to the operating room for Suction dilation and curettage and placement of Bakri balloon. The bleeding was controlled after the procedure. An approximation of EBL to include what she had prior to the surgery and during the surgery was approximately near 1349-2034 cc. Her postop hemoglobin hematocrit 4 hours after surgery was 8.3 and the hemoglobin around noon was 7.3. On postop day 1 the Bakri balloon was removed in the afternoon and there was minimal lochia after that. She did ambulate the evening of postop day 1 and did well no hypovolemic symptoms. Lochia remained like a light period. No clots. She did receive IV antibiotics for 24 hours prophylactically. Fundal height during her stay was firm and no higher than 14 week OB Procedures : None OB Procedures Intrapartum: Curettage OB Procedures: : None Peripartum Data Procedures: Procedures Operation Date: 05/08/21 23:00 Actual Procedure Side Surgeon p Suction Dilation and Curettage Monse Moreland MD Time Spent with Patient Time attestation: Total time spent providing and/or coordinating discharge services: Exam Const: General: cooperative Orientation/consciousness: oriented to person, oriented to place and oriented to time HENMT: General nose exam: Normal external nose present Eyes: General: appearance normal, both eyes and all related structures Resp: Effort & Inspection: normal respiratory effort GI: Inspection: normal to inspection : External Female Exam: normal external appearance Other: uterus fundus 12-14 week Skin: General skin exam: normal color Neuro: General: oriented to person, oriented to place and oriented to time Extrem: General: normal to inspection and no calf tenderness Psych: Appearance: grossly normal Mental Status: mental status grossly normal DS: Data Data Completed and Pending Pending studies at discharge: Pending at discharge 05/08/21 23:43 Surgical [PTH] Routine Labs on day of discharge: Labs from last 24 hours 05/09/21 13:27 WBC 8.8 RBC 2.52 L Hgb 7.8 L Hct 23.7 L MCV 94.0 MCH 31.0 MCHC 32.9 RDW 14.0 Plt Count 228 MPV 9.9 Discharge Plan Discharge Attending physician on discharge: Monse Moreland Consulting providers: Ofelia Peña Discharging Clinician: Messi Anand Anticipated Discharge Date/Time: 05/10/21 08:10 Patient Disposition: Home, Self-Care Activity: may shower, no straining and pelvic rest Diet: regular Discharge Instructions: Call if saturating more than a pad an hour. Lightheadedness/dizziness/fever. Follow up on SunMay 18 1145- [facility]. Take Ferralet once a day prescription ( sent in) or if not covered then take Slofe twice a day. May take colace for constipation. Take daily vitamin. Stand Alone Forms: General Discharge Information Follow-up/Referrals: Messi Anand MD [Physician] - Discharge Medications: Continued [id number] 9-dha 31 mg iron- 1 mg-200 mg capsule 1 tablet PO DAILY Qty: 60 RF: 1 Date of admission: 05/09/21 01:58 Primary Care Provider: Bertha Larsen Admitting Provider: Monse Moreland Attending physician on admission: Monse Moreland Condition: Stable
== END 2021-05-10 10:40 | disposition home or self-care (01) | DRG 769 ==
LOC: ANHED 21:35 → ANHSURGERY 22:31 → ANHOB2 05-09 13:06
PROVIDERS: Physician Assistant; Admitting Provider Student in an Organized Health Care Education/Training Program; Emergency Provider Emergency Medicine; PCP Family Medicine; Visit Provider Obstetrics & Gynecology
PROC: 10D17ZZ Extraction of Products of Conception, Retained, Via Natural or Artificial Opening (ICD-10-PCS; principal; 2021-05-08 23:00)
DX: O72.2 Delayed and secondary postpartum hemorrhage (principal); R06.02 Shortness of breath
CPT/HCPCS: 36415; 71045; 71275; 80053; 85025; 85027; 85380; 85384; 85461; 85610; 85730; 88305; 96360; 96365; 96375; 96376; 99285; A9270; J0131; J1100; J1580; J2210; J2250; J2405; J2704; J3010; J7120; Q9967

== ENCOUNTER 2021-12-17 12:54 | Emergency (ER) | payer OTHER, SELFPAY ==
--- NOTE | ~2021-12-17 | XR_ITS ---
EXAMINATION: XR abdomen/kub 1V INDICATION: Right flank pain TECHNIQUE: Supine views of the abdomen were obtained on 2 radiographs. COMPARISON: CT, 02/05/2016 FINDINGS: There are multiple phleboliths of the pelvis. One calcification of the right pelvis project s in the expected location of the distal ureter. The bowel gas pattern is normal. There are no dilate d loops of bowel. IMPRESSION: 1. Possible right distal ureteral stone. Consider further evaluation with CT. Reviewed, dictated and finalized at location A.
[2021-12-17 13:05] VITALS: BP 135/96; PULSE 85; RESP 16; TEMP 36.5; O2SAT 99
--- NOTE | 2021-12-17 13:20 | ED.BACK ---
HPI - Back Pain/Injury General Chief Complaint: Back Pain/Injury Stated Complaint: lower back pain Time Seen by Provider: 12/17/21 13:20 Source: patient Mode of arrival: ambulatory Limitations: no limitations History of Present Illness HPI Narrative: 36year-old female presents with complaint of right-sided flank pain every morning when waking up with urinary urgency for 2 to 3 weeks. Denies back injury. Denies . Is concerned that something is wrong with her kidney. She is well-appearing. Not taking any [id number]-[id number] medications to treat your pain. She is ambulatory with steady gait. No radiation of pain. States that pain is only in the morning and throughout the day she does not notice it. All systems reviewed and negative except as noted above. Related Data Allergies Allergy/AdvReac Type Severity Reaction Status Date / Time codeine Allergy Mild ITCHING Verified 06/16/21 09:59 aspirin Allergy Unknown Skin Verified 06/16/21 09:59 Reaction Review of Systems Review of Systems: CONSTITUTIONAL: Denies fever, chills, or sweats. EYES: Denies visual changes, redness, or discharge. ENT: Denies rhinorrhea, congestion, sore throat, or otalgia. CARDIOVASCULAR: Denies chest pain, palpitations, or edema. RESPIRATORY: Denies cough or dyspnea. GASTROINTESTINAL: Denies abdominal pain, nausea, vomiting, or diarrhea. GENITOURINARY: Denies dysuria or hematuria. SKIN: Denies rash or itching. MUSCULOSKELETAL: Reports right-sided flank pain. NEUROLOGIC: Denies headache, numbness, or weakness. PSYCHIATRIC: Denies anxiety or depression. All other systems reviewed are negative, except as documented in HPI. [facility] Past Medical History Medical History Anemia Anxiety History of vaginal delivery x 2 Missed x1 Surgical History Surgical History H/O dilation and curettage History of tonsillectomy Family History Family History Grandparent Hypertension Cerebrovascular accident Diabetes mellitus Father Cerebrovascular accident Social History Social History Smoking status: Never smoker Second hand tobacco smoke exposure: No Alcohol intake: current Substance use: never Gender identity (if verbalized by the patient): Female Sexual Orientation (if Verbalized by the Patient): Straight or Heterosexual Spiritual care concerns: No Comments At time of signature, agree with nursing past medical, surgical, social and family history. There is no relevant family history pertinent to the presenting complaint. Exam Narrative: GENERAL: This is a well-nourished, well-developed patient, in no apparent distress. HEAD: normocephalic, atraumatic. EYES: PERRL. Sclera clear/white. Vision is grossly intact. EARS: External ears normal NOSE: External nose normal NECK: Neck supple, non-tender without lymphadenopathy, masses or thyromegaly. CARDIOVASCULAR: Regular rate and rhythm without murmurs, gallops, or rubs. RESPIRATORY: Clear to auscultation. Breath sounds equal bilaterally. No wheezes, rales, or rhonchi. SKIN: warm, Dry, intact with no suspicious lesions or rash, good texture and turgor. NEURO: awake, alert, and oriented to person, place and time. There were no obvious focal neurologic abnormalities. EXTREMITIES: Normal range of motion to all extremities. BACK: Nontender without deformity. No CVA tenderness. Course Course Level of Care: Express Care Visit Vital Signs Vital signs: Vital Signs Temperature 36.5 C 12/17/21 13:05 Pulse Rate 85 12/17/21 13:05 Respiratory Rate 16 12/17/21 13:05 Blood Pressure 135/96 H 12/17/21 13:05 Pulse Oximetry 99 12/17/21 13:05 Oxygen Delivery Room Air 12/17/21 13:05 Temperature 36.5 C 12/17/21 13:05 Pulse Rate 85
== END 2021-12-17 14:19 | disposition home or self-care (01) ==
PROVIDERS: Emergency Provider Nurse Practitioner Family
DX: N20.0 Calculus of kidney (principal)
CPT/HCPCS: 74018; 99213; G0463

== ENCOUNTER 2022-11-19 09:20 | Emergency (ER) | payer OTHER, SELFPAY ==
--- NOTE | ~2022-11-19 | XR_ITS ---
EXAMINATION: XR abdomen/kub 1V DATE: 11/19/2022 10:55 INDICATION: Low back pain. Flank pain. TECHNIQUE: A supine view of the abdomen was obtained. COMPARISON: Abdomen radiographs 12/17/2021, CT abdomen and pelvis 02/05/2016 FINDINGS: There are no dilated loops of bowel. There are phleboliths in the pelvis. IMPRESSION: 1. No visible urolithiasis. Reviewed, dictated and finalized at location A. IMPRESSION: 1. No visible urolithiasis.
[2022-11-19 09:37] VITALS: BP 147/95; PULSE 85; RESP 16; TEMP 36.7; O2SAT 99
--- NOTE | 2022-11-19 09:46 | ED.FEMALEGU ---
HPI - Female Genitourinary General Chief complaint: Urogenital-Female Stated complaint: pain in flank/uti Time Seen by Provider: 11/19/22 10:41 Source: patient and RN notes reviewed Mode of arrival: ambulatory Limitations: no limitations History of Present Illness HPI Narrative: 37-year-old female presents with concern for urinary urgency, frequency, low back ache. She reports history of urinary tract infections with the similar symptoms. Reports she had a urinary tract infection in September that she feels like she never fully got rid of. She saw her primary care doctor for that infection. She reports fatigue and chills today. MD elicited complaint: UTI Related Data Allergies Allergy/AdvReac Type Severity Reaction Status Date / Time codeine Allergy Mild ITCHING Verified 11/19/22 10:15 Review of Systems Review of Systems: CONSTITUTIONAL: Denies malaise, sweats, or fever.. Reports fatigue and chills CARDIOVASCULAR: Denies chest pain, palpitations, or edema. RESPIRATORY: Denies cough or dyspnea. GASTROINTESTINAL: Denies abdominal pain, nausea, vomiting, diarrhea GENITOURINARY: Reports frequency, urgency. Denies flank pain or hematuria. SKIN: Denies rash or itching. MUSCULOSKELETAL: Reports bilateral low, worse on the left. Denies myalgia. All systems reviewed & are unremarkable except as noted in HPI and below PMFSH Past Medical History Medical History Anemia Anxiety History of vaginal delivery x 2 Missed x1 Surgical History Surgical History H/O dilation and curettage History of tonsillectomy Family History Family History Grandparent Hypertension Cerebrovascular accident Diabetes mellitus Father Cerebrovascular accident Social History Social History Smoking status: Never smoker Second hand tobacco smoke exposure: No Alcohol intake: current Substance use: never Living arrangements: with family Gender identity (if verbalized by the patient): Female Sexual Orientation (if Verbalized by the Patient): Straight or Heterosexual Spiritual care concerns: No Comments At time of signature, agree with nursing past medical, surgical, social and family history. There is no relevant family history pertinent to the presenting complaint Exam Narrative: GENERAL: Well-appearing, well-nourished, and in no acute distress. HEAD: Normocephalic. EYES: PERRLA, conjunctivae clear. NECK: Supple. No lymphadenopathy CHEST: Clear to auscultation. No respiratory distress. HEART: Regular rate and rhythm. ABDOMEN: Soft, nontender upon palpation, nondistended, normal active bowel sounds, no palpable or pulsatile masses, no guarding. No CVA tenderness SKIN: Warm, dry, no rash. NEURO: Alert and oriented x3. PSYCH: Normal mood and affect Course Course Emergency Course: Patient is aware of diagnosis, understands and agrees to treatment plan. Anticipatory guidance given. Patient agrees to follow-up as directed and is aware of reasons to seek care at the emergency department. Portions of this record may have been created with voice recognition software Level of Care: Express Care Visit Vital Signs Vital signs: Vital Signs Temperature 98.1 F 11/19/22 09:37 Pulse Rate 85 11/19/22 09:37 Respiratory Rate 16 11/19/22 09:37 Blood Pressure 147/95 H 11/19/22 09:37 Pulse Oximetry 99 11/19/22 09:37 Oxygen Delivery Room Air 11/19/22 09:37 Temperature 98.1 F 11/19/22 09:37 Pulse Rate 85 11/19/22 09:37 Respiratory Rate 16 11/19/22 09:37 Blood Pressure 147/95 H 11/19/22 09:37 Pulse Oximetry 99 11/19/22 09:37 Oxygen Delivery Room Air 11/19/22 09:37 Reviewed. MDM - Female Genitourinary MDM Narrative Medical decision making narrative
== END 2022-11-19 11:10 | disposition home or self-care (01) ==
PROVIDERS: Emergency Provider Nurse Practitioner; PCP Nurse Practitioner Family
DX: R35.0 Frequency of micturition (principal); R39.15 Urgency of urination; M54.50 Low back pain, unspecified
CPT/HCPCS: 74018; 81003; 87086; 87088; 99213; G0463

== ENCOUNTER 2023-04-18 08:32 | Emergency (ER) | payer SELFPAY ==
[2023-04-18 08:44] VITALS: BP 132/96; PULSE 86; RESP 16; TEMP 36.6; O2SAT 100
--- NOTE | 2023-04-18 08:45 | ED.WOUNDLAC ---
HPI - Wound/Laceration General Chief Complaint: Wound/Laceration Stated Complaint: cut finger,left hand Time Seen by Provider: 04/18/23 08:46 Source: patient Mode of arrival: ambulatory Limitations: no limitations History of Present Illness HPI narrative: 37-year-old female presented for complaint of laceration to the left middle finger. Injury was sustained last night when she was using a new knife to cut [employer] treats. States the knife cut near the middle knuckle. Patient cleanse the site and applied liquid Band-Aid with lidocaine. She reports numbness and decreased sensation distal to the laceration. Last tetanus 2020. Related Data Home Medications Medication Instructions Recorded Confirmed semaglutide 0.25 mg or 0.5 mg (2 0.25 mg subcut WEEKLY 04/18/23 04/18/23 mg/3 mL) subcutaneous pen injector (Hotelcloudempic) Allergies Allergy/AdvReac Type Severity Reaction Status Date / Time codeine Allergy Mild ITCHING Verified 04/18/23 08:51 Review of Systems Review of Systems: CONSTITUTIONAL: Denies body aches, fever, chills, or sweats. EYES: Denies visual changes, redness, or discharge. ENT: Denies rhinorrhea, congestion CARDIOVASCULAR: Denies chest pain, palpitations, or edema. RESPIRATORY: Denies cough or dyspnea. GASTROINTESTINAL: Denies abdominal pain, nausea, vomiting, or diarrhea. SKIN: per hpi MUSCULOSKELETAL: Denies back pain, joint pain, or myalgia. NEUROLOGIC: Denies headache, numbness, tingling, or weakness. PMFSH Past Medical History Medical History Anemia Anxiety History of vaginal delivery x 2 Missed x1 Surgical History Surgical History H/O dilation and curettage History of tonsillectomy Family History Family History Grandparent Hypertension Cerebrovascular accident Diabetes mellitus Father Cerebrovascular accident Social History Social History Smoking status: Never smoker Second hand tobacco smoke exposure: No Alcohol intake: current Substance use: never Living arrangements: with family Gender identity (if verbalized by the patient): Female Sexual Orientation (if Verbalized by the Patient): Straight or Heterosexual Spiritual care concerns: No Comments At time of signature, I have reviewed and agree with nursing past medical, surgical, social and family history unless otherwise noted. Please see nursing chart for further information. There is no relevant family history pertinent to the presenting complaint Exam Narrative: GENERAL: Well-appearing HEAD: Normocephalic, atraumatic. EYES: conjunctivae clear, and EOMI. ENT: Mucous membranes moist. Oropharynx without edema, erythema or lesions. NECK: Supple. No lymphadenopathy CHEST: Clear to auscultation. HEART: Regular rate and rhythm. SKIN: Warm, dry. Left 3rd digit PIP radial aspect with 1cm linear clean lac, edges nearly approximated, no active bleeding. Endorses numbness and decreased sensation distally from the lac site, 2 point discrimination shows slight decrease in sharp sensation just distal to the lac. Strength intact to digit. Palmar sensation intact. ROM of PIP slightly decreased due to pain but able to flex/extend. NEURO: Alert and oriented x3. Course Course Emergency Course: Patient is aware of diagnosis, understands and agrees to treatment plan. Anticipatory guidance given. Patient agrees to follow-up as directed and is aware of reasons to seek care at the emergency department. Portions of this record may have been created with voice recognition software Level of Care: Express Care Visit Vital Signs Vital signs: Vital Signs Temperature 97.8 F 04/18/23 08:44 Pulse Rate 86 04/18/23 08:44 Respiratory Rate 16 04/18/23 08:44 Blood
== END 2023-04-18 09:30 | disposition home or self-care (01) ==
PROVIDERS: Emergency Provider Nurse Practitioner Family; PCP Nurse Practitioner Family
DX: S61.213A Laceration without foreign body of left middle finger without damage to nail, initial encounter (principal); W26.0XXA Contact with knife, initial encounter
CPT/HCPCS: 12001; 99212; G0463

== ENCOUNTER 2023-08-05 13:07 | Emergency (ER) | payer BC, SELFPAY ==
[2023-08-05 14:52] VITALS: BP 142/93; PULSE 99; RESP 20; TEMP 37.7; O2SAT 99
--- NOTE | 2023-08-05 15:05 | ED.GENADULT ---
HPI - General Adult General Chief complaint: Upper Respiratory Infection Stated complaint: Sinus/Cough Source: patient Mode of arrival: ambulatory Limitations: no limitations History of Present Illness HPI narrative: Patient presents for evaluation of sick symptoms for last week. Symptoms include fever, chills, nausea, vomiting, diarrhea, cough, sinus congestion, shortness of breath and body aches. Several family members have similar symptoms but not as severe. She has had pneumonia in the past and this feels similar. She has taken nyquil for her symptoms but the symptoms seemed to worsen. She does no smoke. She took two home COVID tests, both of which were negative. Related Data Allergies Allergy/AdvReac Type Severity Reaction Status Date / Time No Known Allergies Allergy Verified 08/05/23 14:31 Review of Systems Review of Systems: CONSTITUTIONAL: Reports fever and chills. EYES: Denies visual changes, redness, or discharge. ENT: reports sinus congestion, drainage and sore throat. CARDIOVASCULAR: Denies chest pain, palpitations, or edema. RESPIRATORY: Reports cough and shortness of breath. GASTROINTESTINAL: Reports nausea, vomiting, diarrhea. GENITOURINARY: Denies dysuria or hematuria. SKIN: Denies rash or itching. MUSCULOSKELETAL: Reports generalized body aches. NEUROLOGIC: Denies headache, numbness, dizziness, or weakness. PSYCHIATRIC: Denies anxiety or depression. [facility] Past Medical History Medical History Anemia Anxiety History of vaginal delivery x 2 Missed x1 Surgical History Surgical History H/O dilation and curettage History of tonsillectomy Family History Family History Grandparent Hypertension Cerebrovascular accident Diabetes mellitus Father Cerebrovascular accident Social History Social History Smoking status: Never smoker Second hand tobacco smoke exposure: No Alcohol intake: current Substance use: never Living arrangements: with family Gender identity (if verbalized by the patient): Female Sexual Orientation (if Verbalized by the Patient): Straight or Heterosexual Spiritual care concerns: No Exam Narrative: GENERAL: Well-appearing, well-nourished, and in no acute distress. HEAD: Normocephalic, atraumatic. EYES: PERRLA and EOMI. ENT: Nares clear, no rhinorrhea or epistaxis. Mucous membranes moist. Oropharynx without tonsillar hypertrophy exudate or other lesions. Bilateral TMs pearly nolen nonbulging NECK: Supple. No adenopathy or masses. No carotid bruits or JVD CHEST: Cough present on exam. Rales noted in RUL. Other lung soto are clear HEART: Regular rate and rhythm. No murmur heard. Normal peripheral pulses. ABDOMEN: Soft, nontender, nondistended, normal active bowel sounds. EXTREMITIES: Normal range of motion. No edema. SKIN: Warm, dry, no rash. NEURO: No focal deficits. Alert and oriented x3. PSYCH: Normal mood and affect. Course Course Emergency Course: This is a 37-year-old female who presented for evaluation of sick symptoms. COVID, influenza, strep were all negative. I did offer to perform a chest x-ray. Unfortunately we do not have a electronic bench technician here today. I did offer to transfer her to another facility to do this. She declined. She indicates her current symptoms are consistent with those previously experienced with pneumonia. Furthermore she is working on master's degree in nursing so is well educated regarding her health. Through shared decision making we opted to proceed with antibiotics to treat pneumonia. Will discharge with Augmentin and azithromycin. Increase hydration. [id number] agents for symptom management. Follow up with primary provider. Go to the ER
== END 2023-08-05 15:15 | disposition home or self-care (01) ==
PROVIDERS: Emergency Provider Nurse Practitioner; PCP Nurse Practitioner Family
DX: R05.9 Cough, unspecified (principal); R50.9 Fever, unspecified; J34.89 Other specified disorders of nose and nasal sinuses; R06.02 Shortness of breath; R52 Pain, unspecified; Z20.822 Contact with and (suspected) exposure to COVID-19
CPT/HCPCS: 87081; 87426; 87804; 87880; 99213; G0463

== ENCOUNTER 2023-12-24 12:12 | Emergency (ER) | payer BC, SELFPAY ==
--- NOTE | 2023-12-24 12:20 | ED.URI ---
HPI - URI/Sore Throat General Chief Complaint: Upper Respiratory Infection Stated Complaint: flu symptom Time Seen by Provider: 12/24/23 12:56 Source: patient and RN notes reviewed Mode of arrival: ambulatory Limitations: no limitations History of Present Illness HPI Narrative: 38-year-old female presents with concern for 3 day history of fever, sinus congestion, sinus drainage, cough, chest tightness, body aches, headache. She reports she just recently returned from traveling in [place]. Reports she has been taking Tylenol. MD elicited complaint: cough Related Data Home Medications Medication Instructions Recorded Confirmed No Home Medications 12/24/23 12/24/23 Allergies Allergy/AdvReac Type Severity Reaction Status Date / Time No Known Allergies Allergy Verified 12/24/23 12:23 Review of Systems Review of Systems: CONSTITUTIONAL: Reports malaise, fever. EYES: Denies visual changes, redness, or discharge. ENT: Reports rhinorrhea, congestion CARDIOVASCULAR: Denies chest pain, palpitations, or edema. RESPIRATORY: Reports cough. Denies dyspnea. GASTROINTESTINAL: Denies abdominal pain, nausea, vomiting, diarrhea SKIN: Denies rash or itching. MUSCULOSKELETAL: Reports myalgia. NEUROLOGIC: Reports headache. All systems reviewed & are unremarkable except as noted in HPI and below PMFSH Past Medical History Medical History Anemia Anxiety History of vaginal delivery x 2 Missed x1 Surgical History Surgical History H/O dilation and curettage History of tonsillectomy Family History Family History Grandparent Hypertension Cerebrovascular accident Diabetes mellitus Father Cerebrovascular accident Social History Social History Smoking status: Never smoker Second hand tobacco smoke exposure: No Alcohol intake: current Substance use: never Living arrangements: with family Gender identity (if verbalized by the patient): Female Sexual Orientation (if Verbalized by the Patient): Straight or Heterosexual Spiritual care concerns: No Comments At time of signature, agree with nursing past medical, surgical, social and family history. There is no relevant family history pertinent to the presenting complaint Exam Narrative: GENERAL: Well-appearing, well-nourished, and in no acute distress. HEAD: Normocephalic EYES: PERRLA, conjunctivae clear ENT: Nares clear. Mucous membranes moist. TM pearly nolen with dull light reflex bilaterally; no tragal tenderness. Oropharynx not erythematous without lesions. Tonsils not enlarged and without exudate, no drooling, no hoarseness, no trismus, uvula midline. NECK: Supple. No lymphadenopathy CHEST: Clear to auscultation, breath sounds equal. No wheezing, rhonchi, rales, or stridor. No respiratory distress, speaks in full sentences. HEART: Regular rate and rhythm. No murmur heard. SKIN: Warm, dry, no rash. NEURO: Alert and oriented x3. PSYCH: Normal mood and affect Course Course Emergency Course: Patient is aware of diagnosis, understands and agrees to treatment plan. Anticipatory guidance given. Patient agrees to follow-up as directed and is aware of reasons to seek care at the emergency department. Portions of this record may have been created with voice recognition software Level of Care: Express Care Visit Vital Signs Vital signs: Reviewed. MDM - URI/Sore Throat MDM Narrative Medical decision making narrative: Differential diagnosis considered: Brown virus, strep pharyngitis, allergic rhinitis, upper respiratory tract infection, sinusitis, rhinosinusitis, nasopharyngitis. viral pharyngitis, otitis media, otitis externa, pneumonia, bronchitis, viral cough syndrome, viral syndrome, and i
[2023-12-24 12:30] VITALS: BP 151/87; PULSE 114; RESP 20; TEMP 37.7; O2SAT 98
== END 2023-12-24 13:10 | disposition home or self-care (01) ==
PROVIDERS: Emergency Provider Nurse Practitioner; PCP Nurse Practitioner Family
DX: U07.1 COVID-19 (principal)
CPT/HCPCS: 87081; 87426; 87804; 87880; 99213; G0463

== ENCOUNTER 2024-11-02 11:00 | Emergency (ER) | payer BC, SELFPAY ==
--- NOTE | 2024-11-02 11:03 | ED_ITS ---
HPI - Female Genitourinary General Chief complaint: Urogenital-Female Stated complaint: urinary issue Time Seen by Provider: 11/02/24 11:01 Source: patient Mode of arrival: ambulatory Limitations: no limitations History of Present Illness HPI Narrative: Micki is a 39-year-old female patient presenting to the clinic today with complaints of a possible UTI. She reports she started having burning, frequency, and urgency symptoms this morning. States over the last 2-3 days she has had some right-sided flank pain. Denies any concern for STIs. Denies any vaginal odor or discharge. No history of kidney stones. Last menstrual period was 2 weeks ago. No concern for . Related Data Allergies Allergy/AdvReac Type Severity Reaction Status Date / Time No Known Allergies Allergy Verified 11/02/24 11:02 Review of Systems Review of Systems: Pertinent positives per HPI. Patient denies any fever, chills, rash, headache, visual changes, dizziness, cough, runny nose, sore throat, shortness of breath, chest pain, palpitations, nausea, vomiting, diarrhea, constipation, abdominal pain. PMF Past Medical History Medical History Anemia Anxiety History of vaginal delivery x 2 Missed x1 Surgical History Surgical History H/O dilation and curettage History of tonsillectomy Family History Family History Grandparent Hypertension Cerebrovascular accident Diabetes mellitus Father Cerebrovascular accident Social History Social History Smoking status: Never smoker Second hand tobacco smoke exposure: No Alcohol intake: current Substance use: never Living arrangements: with family Gender identity (if verbalized by the patient): Female Sexual Orientation (if Verbalized by the Patient): Straight or Heterosexual Spiritual care concerns: No Comments At the time of my signature, I reviewed and agree with the nursing past medical, surgical, social, and family history. There is no relevant family history pertinent to the patient complaint. Exam Narrative: General: Well-developed, obese, in no apparent distress. Head: Normocephalic, atraumatic. Cardio: Regular rate and rhythm, s1 and s2 normal, no murmur appreciated. Resp: Clear to auscultation bilaterally, no rhonchi, rales, wheezing or rubs. Abdomen: Soft, pliable, bowel sounds present in all quadrants, non-tender to palpation, no organomegly, no CVAT tenderness. Course Course Emergency Course: Portions of this record may have been created with voice recognition software. Level of Care: Express Care Visit Vital Signs Vital signs: Vital Signs Temperature 36.5 C 11/02/24 11:13 Pulse Rate 90 11/02/24 11:13 Respiratory Rate 18 11/02/24 11:13 Blood Pressure 140/99 H 11/02/24 11:13 Pulse Oximetry 100 11/02/24 11:13 Oxygen Delivery Room Air 11/02/24 11:13 Temperature 36.5 C 11/02/24 11:13 Pulse Rate 90 11/02/24 11:13 Respiratory Rate 18 11/02/24 11:13 Blood Pressure 140/99 H 11/02/24 11:13 Pulse Oximetry 100 11/02/24 11:13 Oxygen Delivery Room Air 11/02/24 11:13 Vital signs reviewed MDM - Female Genitourinary MDM Narrative Medical decision making narrative: At the time of visit patient is resting comfortably on the exam table. Patient appears to be nontoxic. Labs: UA dip was obtained positive for protein, blood, bilirubin, leukocytes, and nitrates. Patient denies any use of azo. We will send urine for culture Plan: I suspect patient has urinary tract infection. Prescription for Bactrim was sent to the pharmacy. Supportive measures were discussed with the patient and they voiced understanding discharge instructions and agrees to treatment plan. Return precautions reviewed Differential Diagnosis Differential diagnosis: Likely urinary tract infection, bacterial vaginosis, trichomoniasis, cervicitis, ovarian cyst, vaginitis, ruptured ovarian cyst, cyst of Bartholin's gland, cystitis, dysmenorrhea and other (STIs, pyelonephritis, ureterolithiasis, nephrolithiasis) Lab Data Labs: Lab Results 11/02/24 Range/Units 11:17 POC Urine Color Pending POC Urine Clarity Pending POC Urine pH Pending POC Ur Specif [place] Pending POC Urine Protein Pending POC Ur Glucose (UA) Pending POC Urine Ketones Pending POC Urine Blood Pending POC Urine Nitrite Pending POC Urine Bilirubin Pending POC Urine Urobilinogen Pending POC U Leukocyte Esteras Pending Discharge Plan Discharge Clinical Impression: Urinary tract infection Qualifiers: Urinary tract infection type: acute cystitis Hematuria presence: with hematuria Qualified Code(s): N30.01 - Acute cystitis with hematuria Patient Disposition: Home Condition: Stable Instructions: Antibiotic Form, Urinary Tract Infection in Women (ED) Additional Instructions: Urinalysis is positive for blood, protein, nitrates, leukocytes, and bilirubin. We will send urine for culture. Take Bactrim as prescribed Increase fluids and stay well hydrated Wipe front to back. May use wet wipes. Avoid tub baths If sexually active- pee before and after intercourse. Wear cotton panties Avoid tight clothing up against the genitals Follow up with your PCP in 1 week if symptoms persist. You have an elevated blood pressure in the clinic today and I recommend follow- up with primary care physician to have this reevaluated within the next week if symptoms persist. [place] [employer] guidelines state that normal blood pressure is 120/80 or less. Anything over 120/80 is considered elevated and should be monitored. You may need to decrease you salt intake and eat a heart healthy diet to help lower you blood pressure, other treatments would include decreasing stress, weight loss, stop caffeine, and quit smoking. Your primary care provider can determine whether you need to start antihypertensive medications. Untreated high blood pressure can cause dizziness, headaches, visual changes, blindness, kidney failure, stroke, or heart attack, Patient Language: Burkin[place] Prescriptions: New sulfamethoxazole-trimethoprim [Bactrim DS] 800-160 mg tablet 1 tablet PO Q12H 5 Days Qty: 10 0RF Follow-up/Referrals: CHERYL,SEEMA PRATHER [Primary Care Provider] - Time of Disposition: 11:18 Quality NIHSS Nursing Documentation ED NIHSS nursing documentation: reviewed/agree
[2024-11-02 11:13] VITALS: BP 140/99; PULSE 90; RESP 18; TEMP 36.5; O2SAT 100
[2024-11-02 11:20] LABS: EDUAAPPEAR Cloudy; EDUABILI 1+ (Negative); EDUABLOOD 3+ (Negative); EDUACOLOR1 Red; EDUAGLUCOSE Negative (Negative); EDUAKETONE Negative (Negative); EDUALEUKO Trace (Negative); EDUANITRATE Positive (Negative); EDUAPH 6.5; EDUAPROTEIN 3+ (Negative)
== END 2024-11-02 11:25 | disposition home or self-care (01) ==
PROVIDERS: Emergency Provider Nurse Practitioner Family; PCP Nurse Practitioner Family
DX: N30.01 Acute cystitis with hematuria (principal)
CPT/HCPCS: 81003; 87086; 87186; 99213; G0463

== ENCOUNTER 2025-05-13 18:35 | Emergency (ER) | payer BC, SELFPAY ==
[2025-05-13 18:41] VITALS: BP 160/91; PULSE 89; RESP 16; TEMP 36.8; O2SAT 100
[2025-05-13 18:55] LABS: EDUAAPPEAR Cloudy; EDUABILI Negative (Negative); EDUABLOOD 3+ (Negative); EDUACOLOR1 Pink; EDUAGLUCOSE Negative (Negative); EDUAKETONE Negative (Negative); EDUALEUKO 3+ (Negative); EDUANITRATE Positive (Negative); EDUAPH 7.0; EDUAPROTEIN 2+ (Negative); EDUASPGRAVITY 1.025; EDUAUROBILI 1.0
--- NOTE | 2025-05-13 19:08 | ED.FEMALEGU ---
HPI - Female Genitourinary General Chief complaint: Urogenital-Female Stated complaint: urinary irritation Time Seen by Provider: 05/13/25 18:52 Source: patient and RN notes reviewed Mode of arrival: ambulatory Limitations: no limitations History of Present Illness HPI Narrative: 39-year-old female patient presents today with urinary frequency, dysuria, and hematuria beginning today. Denies abdominal pain, back pain, fever. No OTC treatment prior to arrival. Previous urine culture from October of this year shows E coli with no resistance. Related Data Allergies Allergy/AdvReac Type Severity Reaction Status Date / Time No Known Allergies Allergy Verified 05/13/25 18:52 PMFSH Past Medical History Medical History Missed x1 History of vaginal delivery x 2 Anxiety Anemia Surgical History Surgical History H/O dilation and curettage History of tonsillectomy Family History Family History Grandparent Hypertension Cerebrovascular accident Diabetes mellitus Father Cerebrovascular accident Social History Social History Smoking status: Never smoker Second hand tobacco smoke exposure: No Alcohol intake: current Substance use: never Living arrangements: with family Gender identity (if verbalized by the patient): Female Sexual Orientation (if Verbalized by the Patient): Straight or Heterosexual Spiritual care concerns: No Comments At time of signature, I have reviewed and agree with nursing past medical, surgical, social and family history unless otherwise noted. Please see nursing chart for further information. There is no relevant family history pertinent to the presenting complaint Exam Narrative: GENERAL: Well-appearing, well-nourished, and in no acute distress. HEAD: Normocephalic, atraumatic. EYES: EOMI. No redness or drainage. Conjunctivae normal. ENT: Mucous membranes pink and moist. NECK: Normal AROM. CHEST: No respiratory distress. Clear to auscultation. HEART: Regular rate and rhythm. No murmur appreciated. Normal peripheral pulses. ABDOMEN: Soft, nontender, nondistended, normal active bowel sounds. -CVAT EXTREMITIES: Normal range of motion. No edema. SKIN: Warm, dry, no rash. Capillary refill normal. Normal skin turgor. NEURO: No focal deficits. Alert and oriented x3. Gait steady. PSYCH: Normal affect. No signs of depression or anxiety. Course Course Level of Care: Express Care Visit Vital Signs Vital signs: Vital Signs Temperature 98.2 F 05/13/25 18:41 Pulse Rate 89 05/13/25 18:41 Respiratory Rate 16 05/13/25 18:41 Blood Pressure 160/91 H 05/13/25 18:41 Pulse Oximetry 100 05/13/25 18:41 Oxygen Delivery Room Air 05/13/25 18:41 Temperature 98.2 F 05/13/25 18:41 Pulse Rate 89 05/13/25 18:41 Respiratory Rate 16 05/13/25 18:41 Blood Pressure 160/91 H 05/13/25 18:41 Pulse Oximetry 100 05/13/25 18:41 Oxygen Delivery Room Air 05/13/25 18:41 Reviewed MDM - Female Genitourinary MDM Narrative Medical decision making narrative: 39-year-old female patient presents today with urinary frequency, dysuria, and hematuria beginning today. Denies abdominal pain, back pain, fever. No OTC treatment prior to arrival. Previous urine culture from October of this year shows E coli with no resistance. Normal physical exam. Urinalysis shows 2+ protein, 3+ blood, positive nitrates, and 3+ leukocytes, and is pink in color. Patient will be treated with Keflex. Culture pending. Patient agrees with plan. Vital signs stable. Anticipatory guidance given. Differential Diagnosis Differential diagnosis: Likely urinary tract infection, cystitis and other (Pyelonephritis) Lab Data Labs: Lab Results 05/13/25 Range/Units 18:53 POC Urine Color [place] POC Urine Clarity Cloudy POC Urine pH 7.0 POC Ur Specif [place] 1.025 POC Urine Protein 2+ (Negative) POC Ur Glucose (UA) Negative (Negative) POC Urine Ketones Negative (Negative) POC Urine Blood 3+ (Negative) POC Urine Nitrite Positive (Negative) POC Urine Bilirubin Negative (Negative) POC Urine Urobilinogen 1.0 POC U Leukocyte Ester[place] 3+ (Negative) Critical Care Time Critical Care Time Critical Care Time: No Discharge Plan Discharge Clinical Impression: UTI (urinary tract infection) Qualifiers: Urinary tract infection type: acute cystitis Hematuria presence: with hematuria Qualified Code(s): N30.01 - Acute cystitis with hematuria Patient Disposition: Home Condition: Stable Instructions: Antibiotic Form, Urinary Tract Infection in Women (DC) Additional Instructions: Your urine shows infection today. Take Keflex as prescribed until gone. Your urine will be sent of for a culture to identify what type of bacteria is causing your infection. If the culture shows that your medication will not get rid of your infection, you will be notified and a new antibiotic will be called in for you. If your symptoms worsen to include fever, sweats, chills, nausea, vomiting, severe abdominal or back pain, please go to the ER for further evaluation. Patient Language: Colombian Prescriptions: New cephalexin 500 mg capsule 500 mg PO BID 7 Days Qty: 14 0RF Follow-up/Referrals: CHERYL,SEEMA PRATHER [Primary Care Provider] Time of Disposition: 19:08
== END 2025-05-13 19:13 | disposition home or self-care (01) ==
PROVIDERS: Emergency Provider Nurse Practitioner; PCP Nurse Practitioner Family
DX: N30.01 Acute cystitis with hematuria (principal)
CPT/HCPCS: 81003; 87077; 87086; 87186; 99213; G0463